=== PATIENT | female | born 1980 | race Hispanic/Latino ===

== ENCOUNTER 2018-05-18 20:27 | Emergency (ER) | payer MEDICAID ==
[2018-05-18] MEDS ORDERED: ONDANSETRON HCL 4 MG/2 ML VIAL ONE (21:58)
[2018-05-18] MEDS ORDERED: SODIUM CHLORIDE 0.9% 1000ML 1,000 ML IV ONE (21:58)
[2018-05-18 22:23] LABS: BASOPHILS % (AUTO) 0.3 % (0.0-5.0); MEAN CORPUSCULAR HEMOGLOBIN 31.6 pg (27.0-33.0); MEAN CORPUSCULAR HGB CONC 34.3 g/dL (32.0-36.0); MEAN CORPUSCULAR VOLUME 91.9 fL (79-99); MONOCYTES % (AUTO) 5.3 % (3.0-13.0); NEUTROPHILS % (AUTO) 80.4 % (40.0-77.0); PLATELET COUNT (AUTO) 238 K/uL (130-400); RED BLOOD CELL COUNT(AUTO) 4.03 MIL/uL (4.00-5.50); RED CELL DISTRIBUTION WIDTH 13.1 % (11.0-15.5); WHITE BLOOD COUNT (AUTO) 13.6 K/uL (4.8-10.8)
[2018-05-18 22:24] LABS: APPEARANCE,URINE Clear (CLEAR); BILIRUBIN,URINE Negative (NEGATIVE); COLOR,URINE Yellow (YELLOW); GLUCOSE, URINE (UA) Negative (NEGATIVE); KETONES,URINE Negative (NEGATIVE); LEUKOCYTE ESTERASE ,URINE Trace (NEGATIVE); NITRATE,URINE Negative (NEGATIVE); OCCULT BLOOD,URINE Negative (NEGATIVE); PH,URINE 6.5 (5.0-8.0); PROTEIN,URINE Negative (NEGATIVE)
[2018-05-18 22:41] LABS: CREATININE 0.6 mg/dL (0.5-1.5); POTASSIUM 3.8 mmol/L (3.5-5.1)
[2018-05-18 22:44] LABS: BACTERIA,URINE Rare /HPF (None Seen); MUCUS,URINE Moderate LPF (None Seen); RBC,URINE None Seen /HPF (0-1); SQUAMOUS EPITHELIAL CELL,UR Moderate /HPF (0-2); WBC,URINE None Seen /HPF (0-1)
[2018-05-18] MEDS ORDERED: MAG HYDROX/AL HYDROX/SIMETH ES 30 ML SUSP UDCUP ONE (22:47)
[2018-05-18 23:07] LABS: ALBUMIN 3.1 g/dL (3.5-5.0); BILIRUBIN,TOTAL 0.5 mg/dL (0.2-1.0); TOTAL PROTEIN, SERUM 6.5 g/dL (6.0-8.3)
== END 2018-05-19 00:35 | disposition home or self-care (01) ==
LOC: EDH 20:27
DX: O26.892 Other specified pregnancy related conditions, second trimester (principal); E86.0 Dehydration; O21.8 Other vomiting complicating pregnancy; Z88.8 Allergy status to other drugs, medicaments and biological substances; Z90.49 Acquired absence of other specified parts of digestive tract; Z79.899 Other long term (current) drug therapy; Z3A.15 15 weeks gestation of pregnancy
CPT/HCPCS: 36415; 76805; 80053; 81001; 84702; 85025; 96361; 96374; 99285; J2405; J7030

== ENCOUNTER 2018-07-04 15:06 | Emergency (ER) | payer MEDICAID ==
[2018-07-04] MEDS ORDERED: ACETAMINOPHEN 325 MG TAB ONE (15:35)
[2018-07-04 15:56] LABS: APPEARANCE,URINE Clear (CLEAR); BILIRUBIN,URINE Negative (NEGATIVE); COLOR,URINE Yellow (YELLOW); GLUCOSE, URINE (UA) Negative (NEGATIVE); KETONES,URINE Negative (NEGATIVE); LEUKOCYTE ESTERASE ,URINE Negative (NEGATIVE); NITRATE,URINE Negative (NEGATIVE); OCCULT BLOOD,URINE Negative (NEGATIVE); PROTEIN,URINE Negative (NEGATIVE); UROBILINOGEN,URINE 0.2 mg/dL (0.2-1.0)
[2018-07-04] MEDS ORDERED: ALBUTEROL SULFATE 0.083% 2.5 MG/3 ML INH IH ONE (16:04)
[2018-07-04 16:10] LABS: RAPID GROUP A STREP NEGATIVE (NEGATIVE)
== END 2018-07-04 17:12 | disposition home or self-care (01) ==
LOC: EDH 15:06
DX: O99.512 Diseases of the respiratory system complicating pregnancy, second trimester (principal); J11.1 Influenza due to unidentified influenza virus with other respiratory manifestations; J20.9 Acute bronchitis, unspecified; Z3A.21 21 weeks gestation of pregnancy; Z88.6 Allergy status to analgesic agent; Z90.49 Acquired absence of other specified parts of digestive tract; Z79.899 Other long term (current) drug therapy
CPT/HCPCS: 81003; 87804; 87880; 94640

== ENCOUNTER 2020-04-18 14:25 | Emergency (ER) | payer MEDICAID, OTHER ==
[2020-04-18] MEDS ORDERED: SODIUM CHLORIDE 0.9% 1000ML 1,000 ML IV ONE (14:26)
[2020-04-18 15:23] LABS: BASOPHILS % (AUTO) 0.3 % (0.0-5.0); EOSINOPHILS % (AUTO) 1.1 % (0.0-8.0); HEMATOCRIT 40.8 % (36-48); LYMPHOCYTES % (AUTO) 28.4 % (21.0-51.0); MEAN CORPUSCULAR HEMOGLOBIN 30.5 pg (27.0-33.0); MEAN CORPUSCULAR HGB CONC 34.1 g/dL (32.0-36.0); MEAN CORPUSCULAR VOLUME 89.5 fL (79-99); MONOCYTES % (AUTO) 6.5 % (3.0-13.0); NEUTROPHILS % (AUTO) 63.2 % (40.0-77.0); PLATELET COUNT (AUTO) 247 K/uL (130-400); RED BLOOD CELL COUNT(AUTO) 4.56 MIL/uL (4.00-5.50); RED CELL DISTRIBUTION WIDTH 13.1 % (11.0-15.5); WHITE BLOOD COUNT (AUTO) 11.6 K/uL (4.8-10.8)
[2020-04-18 15:38] LABS: APPEARANCE,URINE Clear (CLEAR); BILIRUBIN,URINE Negative (NEGATIVE); COLOR,URINE Yellow (YELLOW); GLUCOSE, URINE (UA) Negative (NEGATIVE); HCG,QUAL RESULT NEGATIVE (NEGATIVE); KETONES,URINE Negative (NEGATIVE); LEUKOCYTE ESTERASE ,URINE Negative (NEGATIVE); NITRATE,URINE Negative (NEGATIVE); OCCULT BLOOD,URINE Small (NEGATIVE); PH,URINE 7.5 (5.0-8.0); PROTEIN,URINE Negative (NEGATIVE); UROBILINOGEN,URINE 0.2 mg/dL (0.2-1.0)
[2020-04-18] MEDS ORDERED: KETOROLAC TROMETHAMINE 30MG/ML ONE (15:42)
[2020-04-18] MEDS ORDERED: ONDANSETRON HCL 4 MG/2 ML VIAL ONE (15:42)
[2020-04-18 15:48] LABS: CREATININE 0.7 mg/dL (0.5-1.5); POTASSIUM 3.7 mmol/L (3.5-5.1)
[2020-04-18 15:58] LABS: BILIRUBIN,TOTAL 0.3 mg/dL (0.2-1.0); TOTAL PROTEIN, SERUM 7.5 g/dL (6.0-8.3)
[2020-04-18 16:03] LABS: BACTERIA,URINE None Seen /HPF (None Seen); SQUAMOUS EPITHELIAL CELL,UR 0-2 /HPF (0-2); WBC,URINE None Seen /HPF (0-1)
== END 2020-04-18 17:03 | disposition home or self-care (01) ==
LOC: EDH 14:25
DX: R06.00 Dyspnea, unspecified (principal); R51 Headache; R05 Cough; Z20.828 Contact with and (suspected) exposure to other viral communicable diseases; F41.9 Anxiety disorder, unspecified; Z88.8 Allergy status to other drugs, medicaments and biological substances
CPT/HCPCS: 36415; 71045; 80053; 81001; 81025; 83690; 84484; 85025; 87426; 93005; 96361; 96374; 96375; 99285; J1885; J2405; J7030

== ENCOUNTER 2020-04-19 15:41 | Emergency (ER) | payer OTHER | END 2020-04-19 17:37 | disposition home or self-care (01) | LOC: EDH 15:41 | DX: U07.1 COVID-19 (principal); F43.0 Acute stress reaction; R06.00 Dyspnea, unspecified; Z87.891 Personal history of nicotine dependence; Z88.8 Allergy status to other drugs, medicaments and biological substances | CPT/HCPCS: 71045 ==

== ENCOUNTER 2020-05-02 14:45 | Emergency (ER) | payer OTHER ==
[2020-05-02] MEDS ORDERED: ASPIRIN 325 MG TABLET ONE (15:34)
[2020-05-02 16:03] LABS: BASOPHILS % (AUTO) 0.4 % (0.0-5.0); EOSINOPHILS % (AUTO) 0.8 % (0.0-8.0); LYMPHOCYTES % (AUTO) 25.8 % (21.0-51.0); MEAN CORPUSCULAR HEMOGLOBIN 30.1 pg (27.0-33.0); MEAN CORPUSCULAR HGB CONC 34.4 g/dL (32.0-36.0); MEAN CORPUSCULAR VOLUME 87.6 fL (79-99); MONOCYTES % (AUTO) 6.9 % (3.0-13.0); NEUTROPHILS % (AUTO) 65.2 % (40.0-77.0); PLATELET COUNT (AUTO) 360 K/uL (130-400); RED BLOOD CELL COUNT(AUTO) 4.68 MIL/uL (4.00-5.50); RED CELL DISTRIBUTION WIDTH 13.1 % (11.0-15.5); WHITE BLOOD COUNT (AUTO) 10.5 K/uL (4.8-10.8)
[2020-05-02] MEDS ORDERED: NITROGLYCERIN 1GM/1 INCH PACKET TD ONE (16:07)
[2020-05-02 16:18] LABS: CREATININE 0.8 mg/dL (0.5-1.5); POTASSIUM 3.7 mmol/L (3.5-5.1)
[2020-05-02 16:21] LABS: APPEARANCE,URINE Clear (CLEAR); BILIRUBIN,URINE Negative (NEGATIVE); COLOR,URINE Yellow (YELLOW); GLUCOSE, URINE (UA) Negative (NEGATIVE); KETONES,URINE Negative (NEGATIVE); LEUKOCYTE ESTERASE ,URINE Trace (NEGATIVE); NITRATE,URINE Negative (NEGATIVE); OCCULT BLOOD,URINE Negative (NEGATIVE); PH,URINE 8.5 (5.0-8.0); PROTEIN,URINE Negative (NEGATIVE); UROBILINOGEN,URINE 0.2 mg/dL (0.2-1.0)
[2020-05-02 16:23] LABS: BILIRUBIN,TOTAL 0.4 mg/dL (0.2-1.0); TOTAL PROTEIN, SERUM 7.6 g/dL (6.0-8.3)
[2020-05-02 16:24] LABS: HCG,QUAL RESULT NEGATIVE (NEGATIVE)
[2020-05-02 16:29] LABS: INR 0.92 (0.85-1.15); PARTIAL THROMBOPLASTIN TIME 25.4 SEC (26.3-35.5)
[2020-05-02 16:40] LABS: BACTERIA,URINE Rare /HPF (None Seen); RBC,URINE None Seen /HPF (0-1); SQUAMOUS EPITHELIAL CELL,UR 0-2 /HPF (0-2); WBC,URINE 0-1 /HPF (0-1)
[2020-05-02] MEDS ORDERED: ACETAMINOPHEN 325 MG TAB ONE (22:05)
== END 2020-05-02 22:53 | disposition home or self-care (01) ==
LOC: EDH 14:45
DX: R07.89 Other chest pain (principal); R00.2 Palpitations; R06.02 Shortness of breath
CPT/HCPCS: 36415; 71045; 80053; 81001; 81025; 82550; 84484; 85025; 85378; 85610; 85730; 93005

== ENCOUNTER 2020-07-28 20:16 | Emergency (ER) | payer OTHER ==
[2020-07-28 20:47] LABS: BASOPHILS % (AUTO) 0.4 % (0.0-5.0); EOSINOPHILS % (AUTO) 2.2 % (0.0-8.0); HEMATOCRIT 43.1 % (36-48); LYMPHOCYTES % (AUTO) 37.8 % (21.0-51.0); MEAN CORPUSCULAR HEMOGLOBIN 30.6 pg (27.0-33.0); MEAN CORPUSCULAR HGB CONC 34.6 g/dL (32.0-36.0); MEAN CORPUSCULAR VOLUME 88.5 fL (79-99); MONOCYTES % (AUTO) 7.8 % (3.0-13.0); NEUTROPHILS % (AUTO) 51.4 % (40.0-77.0); PLATELET COUNT (AUTO) 326 K/uL (130-400); RED BLOOD CELL COUNT(AUTO) 4.87 MIL/uL (4.00-5.50); RED CELL DISTRIBUTION WIDTH 11.8 % (11.0-15.5); WHITE BLOOD COUNT (AUTO) 11.2 K/uL (4.8-10.8)
[2020-07-28] MEDS ORDERED: ACETAMINOPHEN EXTRA STRENGTH 500 MG TABLET ONE (20:47)
[2020-07-28] MEDS ORDERED: AZITHROMYCIN 250 MG TABLET PO ONE (20:47)
[2020-07-28 20:59] LABS: CREATININE 0.8 mg/dL (0.5-1.5); POTASSIUM 3.5 mmol/L (3.5-5.1)
[2020-07-28 21:02] LABS: BILIRUBIN,TOTAL 0.3 mg/dL (0.2-1.0); TOTAL PROTEIN, SERUM 7.7 g/dL (6.0-8.3)
[2020-07-28 21:07] LABS: RAPID GROUP A STREP NEGATIVE (NEGATIVE)
== END 2020-07-28 21:33 | disposition home or self-care (01) ==
LOC: EDH 20:16
DX: B34.9 Viral infection, unspecified (principal); J02.9 Acute pharyngitis, unspecified; Z98.890 Other specified postprocedural states; Z88.6 Allergy status to analgesic agent
CPT/HCPCS: 36415; 71045; 80053; 85025; 87426; 87804 ×2; 87880; 99284; U0003

== ENCOUNTER 2021-01-08 19:43 | Emergency (ER) | payer OTHER ==
[2021-01-08] MEDS ORDERED: ASPIRIN 325 MG TABLET ONE (20:09)
[2021-01-08 20:12] LABS: BASOPHILS % (AUTO) 0.4 % (0.0-5.0); EOSINOPHILS % (AUTO) 2.2 % (0.0-8.0); HEMATOCRIT 39.5 % (36-48); LYMPHOCYTES % (AUTO) 33.6 % (21.0-51.0); MEAN CORPUSCULAR HEMOGLOBIN 30.6 pg (27.0-33.0); MEAN CORPUSCULAR HGB CONC 33.9 g/dL (32.0-36.0); MEAN CORPUSCULAR VOLUME 90.2 fL (79-99); NEUTROPHILS % (AUTO) 55.3 % (40.0-77.0); PLATELET COUNT (AUTO) 285 K/uL (130-400); RED BLOOD CELL COUNT(AUTO) 4.38 MIL/uL (4.00-5.50); RED CELL DISTRIBUTION WIDTH 12.3 % (11.0-15.5); WHITE BLOOD COUNT (AUTO) 10.6 K/uL (4.8-10.8)
[2021-01-08 20:27] LABS: PROTHROMBIN TIME 10.9 SEC (9.6-11.6)
[2021-01-08 20:29] LABS: PARTIAL THROMBOPLASTIN TIME 24.7 SEC (26.3-35.5)
[2021-01-08 20:29] LABS: APPEARANCE,URINE Clear (CLEAR); BILIRUBIN,URINE Negative (NEGATIVE); COLOR,URINE Yellow (YELLOW); GLUCOSE, URINE (UA) Negative (NEGATIVE); KETONES,URINE Negative (NEGATIVE); LEUKOCYTE ESTERASE ,URINE Negative (NEGATIVE); NITRATE,URINE Negative (NEGATIVE); OCCULT BLOOD,URINE Negative (NEGATIVE); PH,URINE 6.5 (5.0-8.0); PROTEIN,URINE Negative (NEGATIVE); UROBILINOGEN,URINE 0.2 mg/dL (0.2-1.0)
[2021-01-08 20:31] LABS: CREATININE 0.9 mg/dL (0.5-1.5); POTASSIUM 3.2 mmol/L (3.5-5.1)
[2021-01-08 20:31] LABS: HCG,QUAL RESULT NEGATIVE (NEGATIVE)
[2021-01-08] MEDS ORDERED: ONDANSETRON HCL 4 MG/2 ML VIAL ONE ×2 (20:35→20:51)
[2021-01-08] MEDS ORDERED: KETOROLAC TROMETHAMINE 60 MG/2 ML VIAL ONE (20:35)
[2021-01-08] MEDS ORDERED: KETOROLAC TROMETHAMINE 30MG/ML ONE ×2 (20:36→20:52)
[2021-01-08] MEDS ORDERED: ORPHENADRINE CITRATE 30 MG/ML ML ONE (20:37)
[2021-01-08] MEDS ORDERED: SODIUM CHLORIDE 0.9% 1000ML 1,000 ML IV ONE ×2 (20:38→20:50)
[2021-01-08 20:40] LABS: B-TYPE NATRIURETIC PEPTIDE 18 pg/mL (0-100)
[2021-01-08 20:41] LABS: ALBUMIN 3.7 g/dL (3.5-5.0); BILIRUBIN,TOTAL 0.3 mg/dL (0.2-1.0); TOTAL PROTEIN, SERUM 7.2 g/dL (6.0-8.3)
[2021-01-08] MEDS ORDERED: PANTOPRAZOLE SODIUM 40 MG TABLET.DR ONE (21:58)
== END 2021-01-08 22:02 | disposition home or self-care (01) ==
LOC: EDH 19:43
DX: G44.209 Tension-type headache, unspecified, not intractable (principal); E86.0 Dehydration; Z20.822 Contact with and (suspected) exposure to COVID-19; Z88.1 Allergy status to other antibiotic agents
CPT/HCPCS: 36415; 70450; 71045; 80053; 81003; 81025; 83690; 83880; 84443; 84484; 85025; 85610; 85730; 87426; 93005; 96361; 96374; 96375; 99285; J1885 ×2; J2360; J2405 ×2; J7030 ×2; U0003

== ENCOUNTER 2023-12-04 13:46 | Emergency (ER) | payer BC ==
[~2023-12-04] VITALS: Ht 154.9 cm; Wt 73.9 kg
[~2023-12-04 13:46] MED LIST: ASCO500C18 PO; ATOR20TA65 PO; LOSA25TA41 PO; PREN-196 PO; ZINC220T4 PO
[2023-12-04 13:50] VITALS: BP 136/78; PULSE 88; RESP 18
[2023-12-04 13:58] VITALS: TEMP 100.3
[2023-12-04] MEDS: ACETAMINOPHEN 325 MG TAB PO ONE (13:58)
[2023-12-04 14:34] LABS: SARS-CoV-2, RNA, NAAT NEGATIVE SARS CoV-2 (NEGATIVE)
[2023-12-04 14:37] LABS: APPEARANCE,URINE CLEAR (CLEAR); BILIRUBIN,URINE NEGATIVE (NEGATIVE); COLOR,URINE LIGHT-YELLOW (YELLOW); GLUCOSE, URINE (UA) NEGATIVE (NEGATIVE); KETONES,URINE NEGATIVE (NEGATIVE); LEUKOCYTE ESTERASE ,URINE NEGATIVE Leu/uL (NEGATIVE); NITRATE,URINE NEGATIVE (NEGATIVE); OCCULT BLOOD,URINE SMALL (NEGATIVE); PH,URINE 5.5 (5.0-8.0); PROTEIN,URINE NEGATIVE (NEGATIVE); UROBILINOGEN,URINE 0.2 mg/dL (0.2-1.0)
[2023-12-04 14:39] LABS: ADD UA MICROSCOPIC YES
[2023-12-04 14:39] LABS: RAPID GROUP A STREP positive (NEGATIVE)
[2023-12-04 14:41] LABS: HCG,QUALITATIVE URINE NEGATIVE (NEGATIVE)
[2023-12-04 14:42] LABS: INFLUENZA TYPE A Negative For Type A (NEGATIVE); INFLUENZA TYPE B Negative For Type B (NEGATIVE)
[2023-12-04 14:42] LABS: MUCUS,URINE RARE LPF (None Seen); SQUAMOUS EPITHELIAL CELL,UR RARE /HPF (0-2); WBC,URINE 0-1 /HPF (0-1)
[2023-12-04] MEDS: PREDNISONE 20 MG TABLET PO ONE (15:42)
[2023-12-04] MEDS: CEFTRIAXONE 1G VIAL IM ONE (15:42)
[2023-12-04] MEDS ORDERED: PRED20TA3 PO (15:50)
[2023-12-04] MEDS ORDERED: AMOX1TAB16 PO (15:50)
[2023-12-04] MEDS ORDERED: IBUP-2070 PO (15:50)
== END 2023-12-04 16:00 | disposition home or self-care (01) ==
LOC: EDH 13:46
DX: J02.0 Streptococcal pharyngitis (principal); R19.7 Diarrhea, unspecified; M79.10 Myalgia, unspecified site; Z20.822 Contact with and (suspected) exposure to COVID-19; Z90.49 Acquired absence of other specified parts of digestive tract; Z79.899 Other long term (current) drug therapy
CPT/HCPCS: 99284; 87635; 87880; 87804 ×2; 81001; 81025; 96372; J0696

== ENCOUNTER 2024-02-10 01:33 | Emergency (ER) | payer BC ==
[~2024-02-10] VITALS: Ht 154.9 cm; Wt 73.0 kg
[~2024-02-10 01:33] MED LIST changes: +AMOX1TAB16 PO; +IBUP-2070 PO; +PRED20TA3 PO
[2024-02-10 02:12] LABS: BASOPHILS # (AUTO) 0.03 K/uL (0.00-0.20); BASOPHILS % (AUTO) 0.3 % (0.0-5.0); EOSINOPHILS # (AUTO) 0.27 K/uL (0.00-0.70); EOSINOPHILS % (AUTO) 2.6 % (0.0-8.0); HEMATOCRIT 43.2 % (36-48); IMMATURE GRANULOCYTE ABSOLUTE 0.04 K/uL (0-1); LYMPHOCYTES # (AUTO) 3.9 K/uL (1.0-4.8); LYMPHOCYTES % (AUTO) 37.8 % (21.0-51.0); MEAN CORPUSCULAR HEMOGLOBIN 30.7 pg (27.0-33.0); MEAN CORPUSCULAR VOLUME 90.2 fL (79-99); MONOCYTES # (AUTO) 0.8 K/uL (0.1-1.0); MONOCYTES % (AUTO) 7.9 % (3.0-13.0); NEUTROPHILS # (AUTO) 5.2 K/uL (1.8-7.7); PLATELET COUNT (AUTO) 271 K/uL (130-400); RED BLOOD CELL COUNT(AUTO) 4.79 MIL/uL (4.00-5.50); RED CELL DISTRIBUTION WIDTH 12.1 % (11.0-15.5); WHITE BLOOD COUNT (AUTO) 10.3 K/uL (4.8-10.8)
[2024-02-10 02:27] LABS: CREATININE 0.8 mg/dL (0.5-1.0); POTASSIUM 3.6 mmol/L (3.5-5.1)
[2024-02-10 02:28] LABS: ALBUMIN 3.9 g/dL (3.5-5.0); BILIRUBIN,TOTAL 0.3 mg/dL (0.2-1.0); TOTAL PROTEIN, SERUM 7.4 g/dL (6.0-8.3)
[2024-02-10] MEDS: ONDANSETRON 4MG INJ IVP ONE (02:59)
[2024-02-10 03:14] LABS: APPEARANCE,URINE CLEAR (CLEAR); BILIRUBIN,URINE NEGATIVE (NEGATIVE); COLOR,URINE COLORLESS (YELLOW); GLUCOSE, URINE (UA) NEGATIVE (NEGATIVE); KETONES,URINE NEGATIVE (NEGATIVE); LEUKOCYTE ESTERASE ,URINE NEGATIVE Leu/uL (NEGATIVE); NITRATE,URINE NEGATIVE (NEGATIVE); OCCULT BLOOD,URINE NEGATIVE (NEGATIVE); PH,URINE 6.5 (5.0-8.0); PROTEIN,URINE NEGATIVE (NEGATIVE); UROBILINOGEN,URINE 0.2 mg/dL (0.2-1.0)
[2024-02-10 03:25] LABS: ADD UA MICROSCOPIC NO
[2024-02-10] MEDS: IPRATROPIUM/ALBUTEROL SULFATE 3 ML SOLUTION IH ONE (03:28)
[2024-02-10 03:29] VITALS: PULSE 65; RESP 18
[2024-02-10] MEDS ORDERED: IOHEXOL-350 75 ML VIAL IV ONE (04:22)
[2024-02-10 07:10] VITALS: BP 135/63; PULSE 65; RESP 20; O2SAT 99
[2024-02-10] MEDS ORDERED: ALBUHFA IH (09:40)
[2024-02-10] MEDS ORDERED: PRED50TA2 PO (09:40)
== END 2024-02-10 09:57 | disposition home or self-care (01) ==
LOC: EDH 01:33
DX: R07.89 Other chest pain (principal); R53.1 Weakness; R42 Dizziness and giddiness; R06.00 Dyspnea, unspecified; M79.602 Pain in left arm; E78.00 Pure hypercholesterolemia, unspecified; I10 Essential (primary) hypertension; Z90.49 Acquired absence of other specified parts of digestive tract
CPT/HCPCS: 99284; 96374; 71270; 71045; 84484; 80053; 84703; 85025; 85378; 81003; 36415; 93005; 94640; J2405; Q9967

== ENCOUNTER 2024-05-08 10:01 | Emergency (ER) | payer BC ==
[~2024-05-08] VITALS: Ht 154.9 cm; Wt 76.2 kg
[~2024-05-08 10:01] MED LIST changes: +ALBUHFA IH; +PRED50TA2 PO
[2024-05-08 10:49] LABS: BASOPHILS # (AUTO) 0.02 K/uL (0.00-0.20); BASOPHILS % (AUTO) 0.3 % (0.0-5.0); EOSINOPHILS # (AUTO) 0.09 K/uL (0.00-0.70); EOSINOPHILS % (AUTO) 1.2 % (0.0-8.0); HEMATOCRIT 44.4 % (36-48); IMMATURE GRANULOCYTE ABSOLUTE 0.04 K/uL (0-1); LYMPHOCYTES # (AUTO) 2.3 K/uL (1.0-4.8); LYMPHOCYTES % (AUTO) 30.2 % (21.0-51.0); MEAN CORPUSCULAR HEMOGLOBIN 30.8 pg (27.0-33.0); MEAN CORPUSCULAR HGB CONC 33.3 g/dL (32.0-36.0); MEAN CORPUSCULAR VOLUME 92.3 fL (79-99); MONOCYTES # (AUTO) 0.7 K/uL (0.1-1.0); MONOCYTES % (AUTO) 8.9 % (3.0-13.0); NEUTROPHILS # (AUTO) 4.6 K/uL (1.8-7.7); NEUTROPHILS % (AUTO) 58.9 % (40.0-77.0); PLATELET COUNT (AUTO) 250 K/uL (130-400); RED BLOOD CELL COUNT(AUTO) 4.81 MIL/uL (4.00-5.50); RED CELL DISTRIBUTION WIDTH 12.4 % (11.0-15.5); WHITE BLOOD COUNT (AUTO) 7.7 K/uL (4.8-10.8)
[2024-05-08 11:01] LABS: APPEARANCE,URINE CLEAR (CLEAR); BILIRUBIN,URINE NEGATIVE (NEGATIVE); COLOR,URINE LIGHT-YELLOW (YELLOW); GLUCOSE, URINE (UA) NEGATIVE (NEGATIVE); KETONES,URINE NEGATIVE (NEGATIVE); LEUKOCYTE ESTERASE ,URINE NEGATIVE Leu/uL (NEGATIVE); NITRATE,URINE NEGATIVE (NEGATIVE); OCCULT BLOOD,URINE NEGATIVE (NEGATIVE); PROTEIN,URINE NEGATIVE (NEGATIVE); UROBILINOGEN,URINE 0.2 mg/dL (0.2-1.0)
[2024-05-08 11:03] LABS: ADD UA MICROSCOPIC NO
[2024-05-08 11:06] LABS: CREATININE 0.8 mg/dL (0.5-1.0); POTASSIUM 4.4 mmol/L (3.5-5.1)
[2024-05-08 11:21] LABS: B-TYPE NATRIURETIC PEPTIDE 45 pg/mL (0-100)
[2024-05-08] MEDS: IBUPROFEN 800 MG TAB PO ONE (12:22)
[2024-05-08] MEDS ORDERED: ALBUHFA IH (13:27)
[2024-05-08 13:32] VITALS: BP 136/48; PULSE 58; RESP 16; TEMP 96.8; O2SAT 99
[2024-05-13] MEDS ORDERED: CHOL-4 PO (02:58)
[2024-05-13] MEDS ORDERED: VITA800012 PO (02:59)
[2024-05-13] MEDS ORDERED: MULT-1290 PO (03:00)
[2024-05-14] MEDS ORDERED: HYDR-3421 PO (14:21)
== END 2024-05-08 13:40 | disposition home or self-care (01) ==
LOC: EDH 10:01
DX: R06.00 Dyspnea, unspecified (principal); R06.02 Shortness of breath; F41.9 Anxiety disorder, unspecified; Z79.52 Long term (current) use of systemic steroids; Z79.899 Other long term (current) drug therapy; Z88.5 Allergy status to narcotic agent; Z90.49 Acquired absence of other specified parts of digestive tract
CPT/HCPCS: 36415; 71045; 80048; 81003; 82550; 83880; 84484; 85025; 93005

== ENCOUNTER 2024-05-27 13:21 | Emergency (ER) | payer BC ==
[~2024-05-27] VITALS: Ht 154.9 cm; Wt 73.9 kg
[~2024-05-27 13:21] MED LIST changes: -AMOX1TAB16 PO; +CHOL-4 PO; +HYDR-3421 PO; -IBUP-2070 PO; -LOSA25TA41 PO; +MULT-1290 PO; -PRED20TA3 PO; -PRED50TA2 PO; -PREN-196 PO; +VITA800012 PO
[2024-05-27 13:36] VITALS: BP 116/59; PULSE 64; RESP 20
[2024-05-27 13:54] LABS: BASOPHILS # (AUTO) 0.02 K/uL (0.00-0.20); BASOPHILS % (AUTO) 0.2 % (0.0-5.0); EOSINOPHILS # (AUTO) 0.17 K/uL (0.00-0.70); EOSINOPHILS % (AUTO) 1.8 % (0.0-8.0); HEMATOCRIT 40.8 % (36-48); IMMATURE GRANULOCYTE ABSOLUTE 0.04 K/uL (0-1); LYMPHOCYTES # (AUTO) 2.9 K/uL (1.0-4.8); LYMPHOCYTES % (AUTO) 31.3 % (21.0-51.0); MEAN CORPUSCULAR HEMOGLOBIN 30.5 pg (27.0-33.0); MEAN CORPUSCULAR HGB CONC 33.8 g/dL (32.0-36.0); MEAN CORPUSCULAR VOLUME 90.3 fL (79-99); MONOCYTES # (AUTO) 0.9 K/uL (0.1-1.0); MONOCYTES % (AUTO) 9.2 % (3.0-13.0); NEUTROPHILS # (AUTO) 5.3 K/uL (1.8-7.7); NEUTROPHILS % (AUTO) 57.1 % (40.0-77.0); PLATELET COUNT (AUTO) 254 K/uL (130-400); RED BLOOD CELL COUNT(AUTO) 4.52 MIL/uL (4.00-5.50); RED CELL DISTRIBUTION WIDTH 12.3 % (11.0-15.5); WHITE BLOOD COUNT (AUTO) 9.2 K/uL (4.8-10.8)
[2024-05-27 13:59] LABS: CREATININE 0.8 mg/dL (0.5-1.0); POTASSIUM 3.7 mmol/L (3.5-5.1)
[2024-05-27] MEDS ORDERED: IOHEXOL-350 75 ML VIAL IV ONE (14:31)
== END 2024-05-27 15:31 | disposition home or self-care (01) ==
LOC: EDH 13:21
DX: R06.02 Shortness of breath (principal); E78.00 Pure hypercholesterolemia, unspecified; Z88.8 Allergy status to other drugs, medicaments and biological substances; Z79.899 Other long term (current) drug therapy; Z90.49 Acquired absence of other specified parts of digestive tract
CPT/HCPCS: 99284; 71270; 80048; 84703; 85025; 36415; Q9967

== ENCOUNTER 2024-07-29 11:33 | Emergency (ER) | payer BC ==
[~2024-07-29] VITALS: Ht 157.5 cm; Wt 70.3 kg
--- NOTE | 2024-07-29 11:40 | ERN ---
ED Note History of Present Illness Stated Complaint: SOB Chief Complaint: Shortness of Breath Time Seen by MD: 11:35 Dictation: PATIENT IS A 43-YEAR-OLD FEMALE COMING IN TODAY WITH COMPLAINTS OF FLU-LIKE SYMPTOMS TO INCLUDE FEVER CHILLS CLEAR RHINITIS WITH SORE THROAT, PAINFUL SWALLOWING COUGH WITH THE OCCASIONAL PRODUCTION OF YELLOW-GREEN PHLEGM. SHE STATES SHE HAS HAD SOME ABDOMINAL CRAMPING WITH DIARRHEA NAUSEA VOMITING ONSET WAS LAST FRIDAY. NO LOSS OF TASTE OR SMELL, STATES SHE WENT TO HER DOCTOR ON FRIDAY, WAS TOLD AFTER FLU STREP AND COVID THAT EVERYTHING WAS NEGATIVE. SHE NEVER DID GET BETTER AND CAME IN TODAY FOR FURTHER EVALUATION AND TREATMENT. PATIENT NOTED TO HAVE DRY PERSISTENT COUGH WHILE EXAMINED. Allergies: Coded Allergies: meperidine (Verified Allergy, Unknown, 04/19/20) Home Meds Active Scripts Hydroxyzine HCl (Hydroxyzine HCl) 25 Mg Tablet, 25 MG PO Q12H PRN for anxiety for 15 Days, #30 TAB Prov:JENNY PARRA SUPERINTENDENT CONTAINER TERMINAL 05/14/24 Albuterol Sulfate (Ventolin Hfa/Proventil Hfa/Proair Hfa) 90 Mcg Puff, 2 PUFF IH Q4H PRN for SHORTNESS OF BREATH/WHEEZING for 30 Days, #1 INH 0 Refills Prov:KEL SAUCEDO NP 05/08/24 Albuterol Sulfate (Ventolin Hfa/Proventil Hfa/Proair Hfa) 90 Mcg Puff, 2 PUFF IH Q4H for WHEEZING, #1 INHALER 0 Refills Prov:KYAW DALY MD 02/10/24 Reported Medications Multivitamin/Iron/Folic Acid (Centrum Women Tablet) 18 Mg Iron-400 Mcg Tablet, 1 EACH PO DAILY, TAB 05/13/24 Vitamin A (Vitamin A) 2,400 Mcg Capsule, 2400 MCG PO DAILY, CAP 05/13/24 Cholecalciferol (Vitamin D3) (Vitamin D3) 250 Mcg (92182 Unit) Capsule, 250 MCG PO DAILY, CAP 05/13/24 Atorvastatin Calcium (Atorvastatin Calcium) 20 Mg Tablet, 1 TAB PO HS 07/24/23 Zinc Sulfate (Zinc) 50 Mg Tablet, 50 MG PO DAILY, TAB 10/07/21 Ascorbic Acid (Vitamin C) 500 Mg Capsule, 500 MG PO DAILY, CAP 10/07/21 Past Medical History Past Medical History: High Cholesterol Surgical History: Cholecystectomy PSYCH History: no pertinent psych hx Family History: Negative Social History: Negative, Lives with family History: Not Applicable : 7 Para: 7 Aborts: 0 RN Note Reviewed/Agreed w/PFSH: Yes Review of System Dictation CONSTITUTIONAL: NEGATIVE EXCEPT FOR HPI FEVER CHILLS HEAD/FACE: NEGATIVE EXCEPT FOR HPI EENT: NEGATIVE EXCEPT FOR HPI CLEAR RHINITIS WITH SORE THROAT PAINFUL SWALLOWING RESPIRATORY: NEGATIVE EXCEPT FOR HPI PERSISTENT COUGH WITH GREEN-YELLOW PHLEGM GASTROINTESTINAL/ABDOMINAL: NEGATIVE EXCEPT FOR HPI NAUSEA VOMITING WITH DIARRHEA CRAMPING GENITOURINARY: NEGATIVE EXCEPT FOR HPI MUSCULOSKELETAL: NEGATIVE EXCEPT FOR HPI INTEGUMENTARY: NEGATIVE EXCEPT FOR HPI NEUROLOGICAL/PSYCH: NEGATIVE EXCEPT FOR HPI HEMATOLOGIC/LYMPHATIC: NEGATIVE EXCEPT FOR HPI ALL SYSTEMS NEGATIVE, EXCEPT NOTED ABOVE. 13 POINT REVIEW OF SYSTEMS ASSESSED AND ALL NEGATIVE EXCEPT FOR ABOVE. Initial Vital Sign VS Vital Signs Date Time Temp Pulse Resp B/P (MAP) Pulse Ox O2 Delivery O2 Flow Rate FiO2 07/29/24 11:34 98.8 76 20 132/77 98 07/29/24 11:56 Room Air* 0 21 Physical Exam Dictation VITAL SIGNS REVIEWED GENERAL APPEARANCE: ALERT, ORIENTED X 3, N MODERATE ACUTE DISTRESS, WELL DEVELOPED, NOURISHED. HEAD AND FACE: NON-TRAUMATIC. EYES: PERRL, PINK CONJUNCTIVAS, EYELID NO TRAUMA, ANTERIOR CHAMBER WITH ARCUS SENILIS. EARS: PINNAS INTACT AND NO SIGNS OF TRAUMA OR ERYTHEMA EAR CANALS CLEAR AND NO DISCHARGE TM NO ERYTHEMA NOSE: N CLEAR ISCHARGE, NO BLEEDING. OROPHARYNX: MOUTH NORMAL, TONGUE PINK, PHARYNX CLEAR,N MODERATE PHARYNGEAL RYTHEMA, TONSILS NO EXUDATES, NO ABSCESSES NOTED, MUCOUS MEMBRANE MOIST UVULA MIDLINE, VOICE IS CLEAR POSITIVE SOME TONSILLAR LYMPHADENOPATHY NECK: SUPPLE, NON-TENDER, NO THYROMEGALY, NO MASSES, NO JVD, NO BRUITS BREAST:DEFERRED CHEST:NO TENDERNESS, NO CREPITUS, NO PARADOXICAL MOVEMENT, NO RETRACTIONS LUNGS:CLEAR, WELL-VENTILATED, SYMMETRIC, NO RALES, NO WHEEZING, NO RHONCHI, NO S TRIDOR, GOOD BREATH SOUNDS BILATERALLY PERSISTENT COUGH NOTED HEART: REGULAR RATE, REGULAR RHYTHM, NO MURMUR, NO GALLOPS VASCULAR: NO PERIPHERAL EDEMA, ABDOMEN: SOFT, POSITIVE BOWEL SOUNDS, NONDISTENDED, NO GUARDING, NONTENDER, NO REBOUND, NO MASSES NO HEPATOMEGALY, NO SPLENOMEGALY, NO MATAMOROS'S SIGN, NO HERNIAS. NO FOCAL TENDERNESS RECTAL: DEFERRED GENITAL: DEFERRED NEUROLOGICAL: NORMAL SPEECH, MOTOR FUNCTION INTACT, SENSORY FUNCTION INTACT MUSCULOSKELETAL: NECK NONTENDER, FULL RANGE OF MOTION, BACK NONTENDER, FULL RANGE OF MOTION, EXTREMITIES: NONTENDER, FULL RANGE OF MOTION SKIN: COLOR PINK, DRY, NO TURGOR, NO RASH, NO LACERATIONS, NO ABRASIONS, NO CONTUSIONS. LYMPHATIC: DEFERRED Results (Laboratory/Radiology) Laboratory/Radiology Laboratory Tests Test 07/29/24 11:46 07/29/24 11:48 07/29/24 12:08 White Blood Count 7.1 K/uL (4.8-10.8) Red Blood Count 4.88 MIL/uL (4.00-5.50) Hemoglobin 14.8 g/dL (12.0-16.0) Hematocrit 42.9 % (36-48) Mean Corpuscular Volume 87.9 fL (79-99) Mean Corpuscular Hemoglobin 30.3 pg (27.0-33.0) Mean Corpuscular Hemoglobin Concent 34.5 g/dL (32.0-36.0) Red Cell Distribution Width 12.0 % (11.0-15.5) Platelet Count 271 K/uL (130-400) Mean Platelet Volume 9.5 fL (7.5-10.5) Immature Granulocyte % (Auto) 0.6 % (0-1) Neutrophils (%) (Auto) 46.4 % (40.0-77.0) Lymphocytes (%) (Auto) 40.0 % (21.0-51.0) Monocytes (%) (Auto) 11.2 % (3.0-13.0) Eosinophils (%) (Auto) 1.4 % (0.0-8.0) Basophils (%) (Auto) 0.4 % (0.0-5.0) Neutrophils # (Auto) 3.3 K/uL (1.8-7.7) Lymphocytes # (Auto) 2.8 K/uL (1.0-4.8) Monocytes # (Auto) 0.8 K/uL (0.1-1.0) Eosinophils # (Auto) 0.10 K/uL (0.00-0.70) Basophils # (Auto) 0.03 K/uL (0.00-0.20) Absolute Immature Granulocyte (auto 0.04 K/uL (0-1) Nucleated Red Blood Cells 0.0 % (0.0-0.19) Sodium Level 137 mmol/L (136-145) Potassium Level 3.8 mmol/L (3.5-5.1) Chloride Level 100 mmol/L (101-111) L Carbon Dioxide Level 26 mmol/L (21-32) Blood Urea Nitrogen 13 mg/dL (7-18) Creatinine 0.9 mg/dL (0.5-1.0) Glomerular Filtration Rate Calc 80 mL/min (>90) Random Glucose 94 mg/dL (70-105) Total Calcium 9.1 mg/dL (8.5-10.1) Influenza Type A Antigen Positive For Type A Influenza Type B Antigen Negative For Type B SARS-CoV-2 Antigen (Rapid) PRESUMPTIVE NEGATIVE Group A Streptococcus Rapid negative (NEGATIVE) Urine Color COLORLESS (YELLOW) Urine Appearance CLEAR (CLEAR) Urine pH 7.5 (5.0-8.0) Urine Specific [place] 1.004 (1.001-1.031) Urine Protein NEGATIVE mg/dL (NEGATIVE) Urine Glucose (UA) NEGATIVE mg/dL (NEGATIVE) Urine Ketones NEGATIVE mg/dL (NEGATIVE) Urine Occult Blood NEGATIVE (NEGATIVE) Urine Nitrate NEGATIVE (NEGATIVE) Urine Bilirubin NEGATIVE mg/dL (NEGATIVE) Urine Urobilinogen 0.2 mg/dL (0.2-1.0) Urine Leukocyte Esterase NEGATIVE Gianna/uL Labs Reviewed?: Yes ED Course ED Course Orders Procedure Category Date Status Time Covid19 (Sars Antigen LAB 07/29/24 Complete Rapid) 11:35 Influenza Type A & B, LAB 07/29/24 Complete Rapid 11:35 Rapid (Group A Strep) LAB 07/29/24 Complete 11:35 Chest 1vw RAD 07/29/24 Resulted 11:35 Dexamethasone 4mg/Ml PHA 07/29/24 Complete 1ml Vial (Dexametha 12:00 Cbc With Differential LAB 07/29/24 Complete 11:35 Urinalysis Profile LAB 07/29/24 Complete 11:35 0.9%Nacl 1000ml (Ns PHA 07/29/24 Complete 1000ml) 12:00 Ketorolac PHA 07/29/24 Complete Tromethamine 30mg/Ml 12:00 Basic Metabolic Panel LAB 07/29/24 Complete 11:35 Current Medications Medications (Trade) Dose Ordered Sig/Isatu Route PRN Reason Start Time Stop Time Status Last Admin Dose Admin Dexamethasone Sodium Phosphate (dexaMETHasone 4MG/ML 1ML VIAL) 8 mg ONCE ONCE IVP 07/29/24 12:00 07/29/24 12:01 DC 07/29/24 11:52 Ketorolac Tromethamine (toRADol) 30 mg ONCE ONCE IVP 07/29/24 12:00 07/29/24 12:01 DC 07/29/24 11:51 Sodium Chloride 1,000 ml @ 0 mls/hr ONCE ONCE IV 07/29/24 12:00 07/29/24 12:01 DC 07/29/24 11:51 Vital Signs Date Time Temp Pulse Resp B/P (MAP) Pulse Ox O2 Delivery O2 Flow Rate FiO2 07/29/24 11:56 98.8 73 16 146/62 98 Room Air* 0 21 07/29/24 11:34 98.8 76 20 132/77 98 1158, CHEST X-RAY NEGATIVE 1325, PATIENT POSITIVE FOR INFLUENZA A ONLY, CHEST X-RAY URINE AND REMAINDER OF LABS NEGATIVE WE WILL START TAMIFLU AND HAVE PATIENT GO HOME TO FOLLOW UP WITH HER DOCTOR IN 2-3 DAYS Medical Decision Making MDM MDM: DIFFERENTIAL DIAGNOSIS: PNEUMONIA/BRONCHITIS/COVID-19/FL U/STREP/INFLUENZA/COUGH/FEVER RATIONALE: TESTS CONSIDERED AND ORDERED SECONDARY TO SHARED DECISION MAKING INCLUDE: SWABS/RADIOLOGY/UA PREVIOUS OUTSIDE RECORDS REVIEWED: OLD ER VISITS. REVIEWED RISK OF COMPLICATION AND/OR MORBIDITY OR MORTALITY OF PATIENT MANAGEMENT: NONE MEDICATIONS-PER MEDICATION RECONCILIATION SEE NURSE'S NOTES NEED FOR HOSPITALIZATION: PATIENT DOES NOT MEET CRITERIA FOR HOSPITALIZATION. NEED FOR EMERGENCY MAJOR/MINOR SURGERY: NO THERE ARE NO SOCIAL CONCERNS WITH THIS PATIENT. PRESCRIPTION DRUG MANAGEMENT TAMIFLU/TESSALON/MEDROL DOSEPAK PRESCRIPTIONS WILL INCLUDE SYMPTOMATIC CARE PATIENT'S PRIOR EXTERNAL MEDICAL RECORDS FROM OTHER ER VISITS WERE REVIEWED BY ME INDICATED. PRIOR TESTING AND RESULTS FROM PREVIOUS VISITS WERE REVIEWED. PRIOR TESTS WERE TAKEN INTO ACCOUNT WITH MEDICAL DECISION MAKING AND RESOURCE UTILIZATION, INDEPENDENT HISTORIAN/HISTORIANS WERE USED TO OBTAIN COMPLETE MEDICAL HISTORY. I INDEPENDENTLY INTERPRETED THE TEST THAT WERE PERFORMED, RESULTS WERE REVIEWED BY ME AND CONSIDERED FINDINGS ON RADIOLOGY IF ORDERED. MEDICAL MANAGEMENT AND EXAMINATION INTERPRETATION DISCUSSIONS WERE HAD BY ME WITH OTHER QUALIFIED HEALTHCARE PROFESSIONALS INDICATED FOR THE PATIENT'S CARE. DX & DISP Disposition: Discharge Departure Impression: Primary Impression: Influenza A Additional Impressions: Cough, Fever Condition: Stable Scripts Methylprednisolone (Medrol) 4 Mg Tab.ds.pk 1 TAB PO AD for 6 Days, #21 TAB 0 Refills 6 on day 1 then reduce by one tablet daily until gone Prov: KEL SAUCEDO NP 07/29/24 Benzonatate (Tessalon Perles) 100 Mg Cap 100 MG PO TID for cough, #30 CAP 0 Refills Prov: KEL SAUCEDO NP 07/29/24 Oseltamivir Phosphate (Tamiflu) 75 Mg Cap 1 CAP PO BID for 5 Days, #10 CAP 0 Refills Prov: KEL SAUCEDO NP 07/29/24 Additional Instructions: FOLLOW-UP WITH PRIMARY CARE PROVIDER IN 1 TO 2 DAYS. TAKE MEDICATIONS DIRECTED HERE IN THE EMERGENCY ROOM. OKAY TO CONTINUE HOME MEDICATIONS UNLESS OTHERWISE DISCUSSED DURING YOUR VISIT IN THE EMERGENCY ROOM TODAY. RETURN TO YOUR NEAREST EMERGENCY ROOM IF SYMPTOMS WORSEN OR IF THERE IS NO IMPROVEMENT. CALL 911 IF YOU NEED IMMEDIATE ASSISTANCE. TAKE TYLENOL OR MOTRIN [id number] NEEDED AND IF NO CONTRAINDICATIONS ARE PRESENT. INCREASE ORAL HYDRATION. A WOUND CULTURE OR URINE CULTURE WAS ORDERED HERE IN THE EMERGENCY ROOM DEPARTMENT PLEASE FOLLOW-UP WITH PRIMARY CARE PROVIDER AND ADVISE THEM TO GET REPEAT PORTS FROM OUR FACILITY. IF YOU HAD ANY DAKSHA WRAP/SPLINTS THAT WERE APPLIED HERE, PLEASE DO NOT REMOVE THEM UNTIL YOU SEE YOUR PRIMARY CARE OR SPECIALTY. TAKE TAMIFLU DIRECTED UNTIL GONE. , INCREASE YOUR WATER INTAKE. SEE YOUR PRIMARY CARE DOCTOR FOR FOLLOW UP IN 1-2 DAYS. ANY FAMILY MEMBERS AROUND YOU THAT ARE ILL, THEY NEED TO BE CHECKED FOR INFLUENZA. Referrals: KASSIDY SOARES (PCP) Time of Disposition: 13:24 I have reviewed the case, and I agree with, Diagnosis and Plan KEL SAUCEDO NP Jul 29, 2024 11:40
[2024-07-29] MEDS: ketOROlac 30MG VIAL (30MG/ML) IVP ONE (11:51)
[2024-07-29] MEDS: 0.9%NACL 1000ML 1,000 ML IV ONE (11:51)
[2024-07-29] MEDS: dexaMETHasone SOD PHOSPHATE 4 MG/ML 1ML VIAL IVP ONE (11:52)
[2024-07-29 11:56] VITALS: BP 146/62; PULSE 73; RESP 16; TEMP 98.8; O2SAT 98
[2024-07-29 11:56] LABS: BASOPHILS # (AUTO) 0.03 K/uL (0.00-0.20); BASOPHILS % (AUTO) 0.4 % (0.0-5.0); EOSINOPHILS % (AUTO) 1.4 % (0.0-8.0); HEMATOCRIT 42.9 % (36-48); IMMATURE GRANULOCYTE ABSOLUTE 0.04 K/uL (0-1); LYMPHOCYTES # (AUTO) 2.8 K/uL (1.0-4.8); MEAN CORPUSCULAR HEMOGLOBIN 30.3 pg (27.0-33.0); MEAN CORPUSCULAR HGB CONC 34.5 g/dL (32.0-36.0); MEAN CORPUSCULAR VOLUME 87.9 fL (79-99); MONOCYTES # (AUTO) 0.8 K/uL (0.1-1.0); MONOCYTES % (AUTO) 11.2 % (3.0-13.0); NEUTROPHILS # (AUTO) 3.3 K/uL (1.8-7.7); NEUTROPHILS % (AUTO) 46.4 % (40.0-77.0); PLATELET COUNT (AUTO) 271 K/uL (130-400); RED BLOOD CELL COUNT(AUTO) 4.88 MIL/uL (4.00-5.50); WHITE BLOOD COUNT (AUTO) 7.1 K/uL (4.8-10.8)
--- NOTE | 2024-07-29 12:02 | HMCIMG ---
PORTABLE CHEST RADIOGRAPH INDICATION: SOB/COUGH COMPARISON: 05/27/2024 CTA chest FINDINGS: Heart size is normal. The pulmonary vascularity and lucia appear normal. No abnormal pulmonary parenchymal opacity or consolidation identified. No significant pleural effusion noted. No pneumothorax detected. IMPRESSION: No radiographic evidence for any acute cardiopulmonary process.
[2024-07-29 12:05] LABS: CREATININE 0.9 mg/dL (0.5-1.0); POTASSIUM 3.8 mmol/L (3.5-5.1)
[2024-07-29 12:28] LABS: RAPID GROUP A STREP negative (NEGATIVE)
[2024-07-29 12:30] LABS: APPEARANCE,URINE CLEAR (CLEAR); BILIRUBIN,URINE NEGATIVE (NEGATIVE); COLOR,URINE COLORLESS (YELLOW); GLUCOSE, URINE (UA) NEGATIVE (NEGATIVE); KETONES,URINE NEGATIVE (NEGATIVE); LEUKOCYTE ESTERASE ,URINE NEGATIVE Leu/uL (NEGATIVE); NITRATE,URINE NEGATIVE (NEGATIVE); OCCULT BLOOD,URINE NEGATIVE (NEGATIVE); PH,URINE 7.5 (5.0-8.0); PROTEIN,URINE NEGATIVE (NEGATIVE); UROBILINOGEN,URINE 0.2 mg/dL (0.2-1.0)
[2024-07-29 12:39] LABS: COVID19 (SARS ANTIGEN RAPID) PRESUMPTIVE NEGATIVE (NEGATIVE); INFLUENZA TYPE B Negative For Type B (NEGATIVE)
[2024-07-29 12:52] LABS: ADD UA MICROSCOPIC NO
[2024-07-29 13:21] LABS: INFLUENZA TYPE A Positive For Type A (NEGATIVE)
[2024-07-29] MEDS ORDERED: BENZ-39 PO (13:26)
[2024-07-29] MEDS ORDERED: OSEL75 PO (13:26)
[2024-07-29] MEDS ORDERED: METH4TAB3 PO (13:26)
[2024-07-29] MEDS: OSELTAMIVIR PHOSPHATE 75 MG CAP PO ONE (13:36)
== END 2024-07-29 13:40 | disposition home or self-care (01) ==
LOC: EDH 11:33
DX: J10.1 Influenza due to other identified influenza virus with other respiratory manifestations (principal); E78.00 Pure hypercholesterolemia, unspecified; Z20.822 Contact with and (suspected) exposure to COVID-19; Z88.5 Allergy status to narcotic agent; Z90.49 Acquired absence of other specified parts of digestive tract
CPT/HCPCS: 99284; 96374; 71045; 96375; 87426; 80048; 85025; 87880; 87804 ×2; 81003; 36415; J1100; J7030; J1885

== ENCOUNTER 2024-08-03 14:35 | Emergency (ER) | payer BC ==
[~2024-08-03] VITALS: Ht 154.9 cm; Wt 73.0 kg
[~2024-08-03 14:35] MED LIST changes: +BENZ-39 PO; +METH4TAB3 PO; +OSEL75 PO
--- NOTE | 2024-08-03 14:41 | ERN ---
ED Note History of Present Illness Stated Complaint: CP, SOB, DIZZINESS ONSET TODAY Chief Complaint: Chest Pain Time Seen by MD: 14:36 Dictation: PATIENT IS A 43-YEAR-OLD FEMALE COMING IN TODAY WITH DIFFUSE ANTERIOR CHEST PAIN THAT DOES NOT RADIATE, SHORTNESS A BREATH AND DIZZINESS ONSET THIS MORNING. NO JAW PAIN NO ARM PAIN NO BACK PAIN. STATES SHE DOES NOT HAVE A HISTORY OF CAD. NO FEVER NO CHILLS. Allergies: Coded Allergies: meperidine (Verified Allergy, Unknown, 04/19/20) Home Meds Active Scripts Methylprednisolone (Medrol) 4 Mg Tab.ds.pk, 1 TAB PO AD for 6 Days, #21 TAB 0 Refills 6 on day 1 then reduce by one tablet daily until gone Prov:KEL SAUCEDO NP 07/29/24 Benzonatate (Tessalon Perles) 100 Mg Cap, 100 MG PO TID for cough, #30 CAP 0 Refills Prov:KEL SAUCEDO NP 07/29/24 Oseltamivir Phosphate (Tamiflu) 75 Mg Cap, 1 CAP PO BID for 5 Days, #10 CAP 0 Refills Prov:KEL SAUCEDO NP 07/29/24 Hydroxyzine HCl (Hydroxyzine HCl) 25 Mg Tablet, 25 MG PO Q12H PRN for anxiety for 15 Days, #30 TAB Prov:JENNY PARRA 05/14/24 Albuterol Sulfate (Ventolin Hfa/Proventil Hfa/Proair Hfa) 90 Mcg Puff, 2 PUFF IH Q4H PRN for SHORTNESS OF BREATH/WHEEZING for 30 Days, #1 INH 0 Refills Prov:KEL SAUCEDO NP 05/08/24 Albuterol Sulfate (Ventolin Hfa/Proventil Hfa/Proair Hfa) 90 Mcg Puff, 2 PUFF IH Q4H for WHEEZING, #1 INHALER 0 Refills Prov:KYAW DALY MD 02/10/24 Reported Medications Multivitamin/Iron/Folic Acid (Centrum Women Tablet) 18 Mg Iron-400 Mcg Tablet, 1 EACH PO DAILY, TAB 05/13/24 Vitamin A (Vitamin A) 2,400 Mcg Capsule, 2400 MCG PO DAILY, CAP 05/13/24 Cholecalciferol (Vitamin D3) (Vitamin D3) 250 Mcg (78039 Unit) Capsule, 250 MCG PO DAILY, CAP 05/13/24 Atorvastatin Calcium (Atorvastatin Calcium) 20 Mg Tablet, 1 TAB PO HS 07/24/23 Zinc Sulfate (Zinc) 50 Mg Tablet, 50 MG PO DAILY, TAB 10/07/21 Ascorbic Acid (Vitamin C) 500 Mg Capsule, 500 MG PO DAILY, CAP 10/07/21 Past Medical History Past Medical History: High Cholesterol Surgical History: Cholecystectomy Family History: Negative Social History: Negative, Lives with family History: Not Applicable : 7 Para: 7 Aborts: 0 RN Note Reviewed/Agreed w/PFSH: Yes Review of System Dictation CONSTITUTIONAL: NEGATIVE EXCEPT FOR HPI HEAD/FACE: NEGATIVE EXCEPT FOR HPI EENT: NEGATIVE EXCEPT FOR HPI RESPIRATORY: NEGATIVE EXCEPT FOR HPI CHEST PAIN/SOB GASTROINTESTINAL/ABDOMINAL: NEGATIVE EXCEPT FOR HPI GENITOURINARY: NEGATIVE EXCEPT FOR HPI MUSCULOSKELETAL: NEGATIVE EXCEPT FOR HPI INTEGUMENTARY: NEGATIVE EXCEPT FOR HPI NEUROLOGICAL/PSYCH: NEGATIVE EXCEPT FOR HPI DIZZINESS HEMATOLOGIC/LYMPHATIC: NEGATIVE EXCEPT FOR HPI ALL SYSTEMS NEGATIVE, EXCEPT NOTED ABOVE. 13 POINT REVIEW OF SYSTEMS ASSESSED AND ALL NEGATIVE EXCEPT FOR ABOVE. Initial Vital Sign VS Vital Signs Date Time Temp Pulse Resp B/P (MAP) Pulse Ox O2 Delivery O2 Flow Rate FiO2 08/03/24 14:36 98.6 75 16 130/72 100 Room Air 0 08/03/24 16:11 21 Physical Exam Dictation VITAL SIGNS REVIEWED GENERAL APPEARANCE: ALERT, ORIENTED X 3, MILD ACUTE DISTRESS, WELL DEVELOPED, NOURISHED. ANXIOUS HEAD AND FACE: NON-TRAUMATIC. EYES: PERRL, PINK CONJUNCTIVAS, EYELID NO TRAUMA, ANTERIOR CHAMBER WITH ARCUS SENILIS. EARS: PINNAS INTACT AND NO SIGNS OF TRAUMA OR ERYTHEMA EAR CANALS CLEAR AND NO DISCHARGE TM NO ERYTHEMA NOSE: NO DISCHARGE, NO BLEEDING. OROPHARYNX: MOUTH NORMAL, TONGUE PINK, PHARYNX CLEAR,NO ERYTHEMA, TONSILS NO EXUDATES, NO ABSCESSES NOTED, MUCOUS MEMBRANE MOIST NECK: SUPPLE, NON-TENDER, NO THYROMEGALY, NO MASSES, NO JVD, NO BRUITS BREAST:DEFERRED CHEST:NO TENDERNESS, NO CREPITUS, NO PARADOXICAL MOVEMENT, NO RETRACTIONS LUNGS:CLEAR, WELL-VENTILATED, SYMMETRIC, NO RALES, NO WHEEZING, NO RHONCHI, NO STRIDOR, GOOD BREATH SOUNDS BILATERALLY HEART: REGULAR RATE, REGULAR RHYTHM, NO MURMUR, NO GALLOPS VASCULAR: NO PERIPHERAL EDEMA, ABDOMEN: SOFT, POSITIVE BOWEL SOUNDS, NONDISTENDED, NO GUARDING, NONTENDER, NO REBOUND, NO MASSES NO HEPATOMEGALY, NO SPLENOMEGALY, NO MATAMOROS'S SIGN, NO HERNIAS. RECTAL: DEFERRED GENITAL: DEFERRED NEUROLOGICAL: NORMAL SPEECH, MOTOR FUNCTION INTACT, SENSORY FUNCTION INTACT NIH IS 0 GAIT STEADY MUSCULOSKELETAL: NECK NONTENDER, FULL RANGE OF MOTION, BACK NONTENDER, FULL RANGE OF MOTION, EXTREMITIES: NONTENDER, FULL RANGE OF MOTION SKIN: COLOR PINK, DRY, NO TURGOR, NO RASH, NO LACERATIONS, NO ABRASIONS, NO CONTUSIONS. LYMPHATIC: DEFERRED Results (Laboratory/Radiology) Laboratory/Radiology SANDER: SOB/DIFFUSE CHEST ORDERING PHYSICIAN: KEL SAUCEDO NP PROCEDURE: CXR1VW - CHEST 1VW CHEST 1VW HISTORY: Shortness of breath COMPARISON: 07/29/2024 FINDINGS: A frontal projection of the chest was obtained. No acute pulmonary infiltrates is seen. The heart is borderline enlarged. Prominent interstitial markings are seen. No evidence of aortic calcification is seen. IMPRESSION: 1. No acute pulmonary infiltrate is seen. Prominent interstitial markings. Labs Reviewed?: Yes EKG Comment: EKG NORMAL SINUS RHYTHM/HEART RATE 76/AXIS NORMAL/NO ECTOPY ED Course ED Course 1625, PATIENT IN NO PAIN AT THIS TIME. SHE IS AWARE THAT CARDIAC WORKUP IS NE GATIVE EKG WAS NORMAL TROPONIN LESS THAN FOUR CHEST X-RAY CLEAR NO ELECTROLYTE IMBALANCE HEART Score Response (Comments) Value History: Low suspicion (0) 0 Age: 45-65yrs (+1) 1 Risk Factors: 1-2 risk factors (+1) 1 Initial Troponin: Normal limit (0) 0 Total 2 Medical Decision Making MDM MDM: DIFFERENTIAL DIAGNOSIS: ACS/AMI/ELECTROLYTE IMBALANCE/DEHYDRATION/PANIC ATTACK/ANXIETY/ATYPICAL CHEST PAIN RATIONALE: TESTS CONSIDERED AND ORDERED SECONDARY TO SHARED DECISION MAKING INCLUDE: RADIOLOGY/EKG/LABS PREVIOUS OUTSIDE RECORDS REVIEWED: OLD ER VISITS. REVIEWED RISK OF COMPLICATION AND/OR MORBIDITY OR MORTALITY OF PATIENT MANAGEMENT: NONE MEDICATIONS-PER MEDICATION RECONCILIATION SEE NURSE'S NOTES NEED FOR HOSPITALIZATION: PATIENT DOES NOT MEET CRITERIA FOR HOSPITALIZATION. NO NEED FOR EMERGENCY MAJOR/MINOR SURGERY: NO THERE ARE NO SOCIAL CONCERNS WITH THIS PATIENT. PRESCRIPTION DRUG MANAGEMENT NO PRESCRIPTIONS WILL INCLUDE SYMPTOMATIC CARE PATIENT'S PRIOR EXTERNAL MEDICAL RECORDS FROM OTHER ER VISITS WERE REVIEWED BY ME INDICATED. PRIOR TESTING AND RESULTS FROM PREVIOUS VISITS WERE REVIEWED. PRIOR TESTS WERE TAKEN INTO ACCOUNT WITH MEDICAL DECISION MAKING AND RESOURCE UTILIZATION, INDEPENDENT HISTORIAN/HISTORIANS WERE USED TO OBTAIN COMPLETE MEDICAL HISTORY. I INDEPENDENTLY INTERPRETED THE TEST THAT WERE PERFORMED, RESULTS WERE REVIEWED BY ME AND CONSIDERED FINDINGS ON RADIOLOGY IF ORDERED. MEDICAL MANAGEMENT AND EXAMINATION INTERPRETATION DISCUSSIONS WERE HAD BY ME WITH OTHER QUALIFIED HEALTHCARE PROFESSIONALS INDICATED FOR THE PATIENT'S CARE. DX & DISP Disposition: Discharge Departure Impression: Primary Impression: Atypical chest pain Additional Impression: Anxiety Condition: Stable Additional Instructions: FOLLOW-UP WITH PRIMARY CARE PROVIDER IN 1 TO 2 DAYS. TAKE MEDICATIONS DIRECTED HERE IN THE EMERGENCY ROOM. OKAY TO CONTINUE HOME MEDICATIONS UNLESS OTHERWISE DISCUSSED DURING YOUR VISIT IN THE EMERGENCY ROOM TODAY. RETURN TO YOUR NEAREST EMERGENCY ROOM IF SYMPTOMS WORSEN OR IF THERE IS NO IMPROVEMENT. CALL 911 IF YOU NEED IMMEDIATE ASSISTANCE. TAKE TYLENOL OR MOTRIN [id number] NEEDED AND IF NO CONTRAINDICATIONS ARE PRESENT. INCREASE ORAL HYDRATION. A WOUND CULTURE OR URINE CULTURE WAS ORDERED HERE IN THE EMERGENCY ROOM DEPARTMENT PLEASE FOLLOW-UP WITH PRIMARY CARE PROVIDER AND ADVISE THEM TO GET REPEAT PORTS FROM OUR FACILITY. IF YOU HAD ANY DAKSHA WRAP/SPLINTS THAT WERE APPLIED HERE, PLEASE DO NOT REMOVE THEM UNTIL YOU SEE YOUR PRIMARY CARE OR SPECIALTY. SEE YOUR PRIMARY CARE DOCTOR FOR FOLLOW UP IN 1-2 DAYS. DIET AND ACTIVITY TOLERATED. Referrals: KASSIDY SOARES (PCP) Time of Disposition: 16:28 I have reviewed the case, and I agree with, Diagnosis and Plan ATTESTATION BY PHYSICIAN I PERFORMED THE SUBSTANTIVE PORTION OF THE VISIT. I HAVE REVIEWED AND PERSONALLY MADE AND APPROVED THE MANAGEMENT PLAN THAT IS DOCUMENTED IN THE NOTE BY MYSELF FOR THE A PP. I ACKNOWLEDGED FOR RESPONSIBILITY FOR THE PATIENT'S MANAGEMENT PLAN. KEL SAUCEDO NP Aug 03, 2024 14:41 JESSICA DOMÍNGUEZ MD Aug 06, 2024 18:14
--- NOTE | 2024-08-03 15:20 | HMCIMG ---
CHEST 1VW HISTORY: Shortness of breath COMPARISON: 07/29/2024 FINDINGS: A frontal projection of the chest was obtained. No acute pulmonary infiltrates is seen. The heart is borderline enlarged. Prominent interstitial markings are seen. No evidence of aortic calcification is seen. IMPRESSION: 1. No acute pulmonary infiltrate is seen. Prominent interstitial markings.
--- NOTE | 2024-08-03 15:25 | EKG ---
[facility] Test Date: 2024-08-03 Test Time: 14:37:57 Pat Name: STARR JAMES Department: [facility] Room: Gender: F Tag Maker: [id number] : 1980 Requested By: KEL SAUCEDO Order Number: [id number] Reading MD: Tobin Sifuentes Measurements Intervals [place] Rate: 76 P: 93 ND: 64 QRS: 40 QRSD: 86 T: 6 QT: 423 QTc: 475 Interpretive Statements Sinus rhythm Compared to ECG 05/12/2024 12:24:42 No significant changes Electronically Signed On 08-03-2024 19:20:04 QUARRYING SPECIALIST by Tobin Sifuentes Please click the below link to view image of tracing.
[2024-08-03 16:07] LABS: BASOPHILS # (AUTO) 0.06 K/uL (0.00-0.20); BASOPHILS % (AUTO) 0.6 % (0.0-5.0); EOSINOPHILS % (AUTO) 1.9 % (0.0-8.0); HEMATOCRIT 44.1 % (36-48); IMMATURE GRANULOCYTE ABSOLUTE 0.19 K/uL (0-1); LYMPHOCYTES # (AUTO) 4.1 K/uL (1.0-4.8); LYMPHOCYTES % (AUTO) 38.3 % (21.0-51.0); MEAN CORPUSCULAR HEMOGLOBIN 30.9 pg (27.0-33.0); MEAN CORPUSCULAR VOLUME 90.9 fL (79-99); MONOCYTES # (AUTO) 0.8 K/uL (0.1-1.0); MONOCYTES % (AUTO) 7.7 % (3.0-13.0); NEUTROPHILS # (AUTO) 5.3 K/uL (1.8-7.7); NEUTROPHILS % (AUTO) 49.7 % (40.0-77.0); PLATELET COUNT (AUTO) 316 K/uL (130-400); RED BLOOD CELL COUNT(AUTO) 4.85 MIL/uL (4.00-5.50); RED CELL DISTRIBUTION WIDTH 11.9 % (11.0-15.5); WHITE BLOOD COUNT (AUTO) 10.6 K/uL (4.8-10.8)
[2024-08-03 16:11] VITALS: BP 130/72; PULSE 75; RESP 16; TEMP 98.6; O2SAT 100
[2024-08-03 16:16] LABS: CREATININE 0.8 mg/dL (0.5-1.0); POTASSIUM 3.8 mmol/L (3.5-5.1)
[2024-08-03 16:18] LABS: MAGNESIUM 2.1 mg/dL (1.80-2.40)
[2024-08-03] MEDS: ASPIRIN 325MG TAB PO ONE (16:20)
== END 2024-08-03 16:56 | disposition home or self-care (01) ==
LOC: EDH 14:35
DX: R07.89 Other chest pain (principal); F41.9 Anxiety disorder, unspecified; E78.00 Pure hypercholesterolemia, unspecified; Z88.5 Allergy status to narcotic agent; Z90.49 Acquired absence of other specified parts of digestive tract
CPT/HCPCS: 36415; 71045; 80048; 83735; 84484; 85025; 93005; 99284

== ENCOUNTER 2024-09-10 19:16 | Emergency (ER) | payer BC ==
[~2024-09-10] VITALS: Ht 157.5 cm; Wt 76.7 kg
[2024-09-10 19:48] LABS: BASOPHILS # (AUTO) 0.04 K/uL (0.00-0.20); BASOPHILS % (AUTO) 0.3 % (0.0-5.0); EOSINOPHILS # (AUTO) 0.24 K/uL (0.00-0.70); HEMATOCRIT 37.1 % (36-48); IMMATURE GRANULOCYTE ABSOLUTE 0.09 K/uL (0-1); LYMPHOCYTES # (AUTO) 4.6 K/uL (1.0-4.8); LYMPHOCYTES % (AUTO) 38.5 % (21.0-51.0); MEAN CORPUSCULAR HEMOGLOBIN 31.1 pg (27.0-33.0); MEAN CORPUSCULAR HGB CONC 34.5 g/dL (32.0-36.0); MONOCYTES % (AUTO) 8.7 % (3.0-13.0); NEUTROPHILS % (AUTO) 49.8 % (40.0-77.0); PLATELET COUNT (AUTO) 256 K/uL (130-400); RED BLOOD CELL COUNT(AUTO) 4.12 MIL/uL (4.00-5.50); RED CELL DISTRIBUTION WIDTH 12.1 % (11.0-15.5)
[2024-09-10 19:50] LABS: CREATININE 0.7 mg/dL (0.5-1.0); POTASSIUM 3.8 mmol/L (3.5-5.1)
--- NOTE | 2024-09-10 19:55 | EKG ---
[facility] Test Date: 2024-09-10 Test Time: 19:25:31 Pat Name: STARR JAMES Department: [facility] Room: Gender: Female Utility Agent: [id number] : 1980 Requested By: CHARAN BAPTISTE Order Number: [id number] Reading MD: Measurements Intervals [place] Rate: 61 P: 28 [place]: 211 QRS: 46 QRSD: 91 T: 46 QT: 490 QTc: 494 Interpretive Statements Sinus rhythm Prolonged [place] interval No previous ECG available for comparison Please click the below link to view image of tracing.
--- NOTE | 2024-09-10 19:58 | ERN ---
ED Note History of Present Illness Stated Complaint: CP Chief Complaint: Chest Pain Time Seen by MD: 19:22 Time Seen by Midlevel: 19:22 Dictation: The patient is a 43-year-old female with a history of hyperlipidemia, bradycardia, cholecystectomy who presents to the emergency department with complaints of chest pain on and off onset yesterday. Patient reports chest feels like punctures and only last a few seconds. Reports associated shortness of breath. Denies any cough, fevers. Patient reports she had a left heart catheterization done at [facility] in May 21, [address] Bradford and was normal. Denies taking any aspirin or any other antiplatelet medication. Allergies: Coded Allergies: meperidine (Verified Allergy, Unknown, 04/19/20) Home Meds Active Scripts Methylprednisolone (Medrol) 4 Mg Tab.ds.pk, 1 TAB PO AD for 6 Days, #21 TAB 0 Refills 6 on day 1 then reduce by one tablet daily until gone Prov:KEL SAUCEDO NP 07/29/24 Benzonatate (Tessalon Perles) 100 Mg Cap, 100 MG PO TID for cough, #30 CAP 0 Refills Prov:KEL SAUCEDO NP 07/29/24 Oseltamivir Phosphate (Tamiflu) 75 Mg Cap, 1 CAP PO BID for 5 Days, #10 CAP 0 Refills Prov:KEL SAUCEDO NP 07/29/24 Hydroxyzine HCl (Hydroxyzine HCl) 25 Mg Tablet, 25 MG PO Q12H PRN for anxiety for 15 Days, #30 TAB Prov:JENNY PARRA 05/14/24 Albuterol Sulfate (Ventolin Hfa/Proventil Hfa/Proair Hfa) 90 Mcg Puff, 2 PUFF IH Q4H PRN for SHORTNESS OF BREATH/WHEEZING for 30 Days, #1 INH 0 Refills Prov:KEL SAUCEDO NP 05/08/24 Albuterol Sulfate (Ventolin Hfa/Proventil Hfa/Proair Hfa) 90 Mcg Puff, 2 PUFF IH Q4H for WHEEZING, #1 INHALER 0 Refills Prov:KYAW DALY MD 02/10/24 Reported Medications Multivitamin/Iron/Folic Acid (Centrum Women Tablet) 18 Mg Iron-400 Mcg Tablet, 1 EACH PO DAILY, TAB 9/12/24 Vitamin A (Vitamin A) 2,400 Mcg Capsule, 2400 MCG PO DAILY, CAP 05/13/24 Cholecalciferol (Vitamin D3) (Vitamin D3) 250 Mcg (88881 Unit) Capsule, 250 MCG PO DAILY, CAP 05/13/24 Atorvastatin Calcium (Atorvastatin Calcium) 20 Mg Tablet, 1 TAB PO HS 07/24/23 Zinc Sulfate (Zinc) 50 Mg Tablet, 50 MG PO DAILY, TAB 10/07/21 Ascorbic Acid (Vitamin C) 500 Mg Capsule, 500 MG PO DAILY, CAP 10/07/21 Past Medical History Past Medical History: High Cholesterol, Other Additional Past Medical Hx: BRADYCARDIA Surgical History: Cholecystectomy Family History: Negative Social History: Negative, Lives with family History: Not Applicable : 7 Para: 7 Aborts: 0 RN Note Reviewed/Agreed w/PFSH: Yes Review of System Dictation Constitutional: Negative for fever,chills, and weight loss Eyes: Negative for injury, pain,redness, and discharge ENT: Negative for injury,pain or swelling Cardiovascular: Negative for palpitations, and edema positive for chest pain Respiratory: Negative for cough, and wheezing, positive for shortness of breath Abdomen/GI: Negative for abdominal pain, nausea, vomiting, diarrhea, and constipation Back: Negative for injury and pain : Negative for injury, bleeding and discharge MS/Extremity: Negative for injury and deformity Skin: Negative for rash, and discoloration Neuro: Negative for headache, weakness, numbness, tingling, and seizure Psych: Negative for suicide ideation, homicidal ideation, and hallucinations Initial Vital Sign VS Vital Signs Date Time Temp Pulse Resp B/P (MAP) Pulse Ox O2 Delivery O2 Flow Rate FiO2 09/10/24 19:19 98.1 60 20 135/69 100 Room Air 09/10/24 20:02 0 21 Physical Exam Dictation Vital Signs reviewed General Appearance: Alert, oriented x 3, no acute distress, well developed, nourished. Head and Face: non-traumatic. Eyes: PERRL, pink conjunctivas, eyelid no trauma, anterior chamber with arcus senilis. Ears: Pinnas intact and no signs of trauma or erythema ear canals clear and no discharge TM no erythema Nose: No discharge, no bleeding. Oropharynx: Mouth normal, tongue pink. pharynx clear,no erythema, tonsils no exudates, no abscesses noted, mucous membrane moist Neck: Supple, non-tender, no thyromegaly, no masses, no JVD, no bruits Breast:Deferred Chest:No tenderness, no crepitus, no paradoxical movement, no retractions Lungs:Clear, well-ventilated, symmetric, no rales, no wheezing, no rhonchi, no stridor, good breath sounds bilaterally Heart: Regular rate, regular rhythm, no murmur, no gallops Vascular: no peripheral edema, Abdomen: Soft, positive bowel sounds, nondistended, no guarding, Tenderness to chest with palpation, no rebound, no masses no hepatomegaly, no splenomegaly, no Braun's sign, no hernias. Rectal: Deferred Genital: Deferred Neurological: Normal speech, motor function intact, sensory function intact Musculoskeletal: Neck nontender, full range of motion, back nontender, full range of motion, Extremities: nontender, full range of motion Skin: Color pink, dry, no turgor, no rash, no lacerations, no abrasions, no contusions. Lymphatic: Deferred Results (Laboratory/Radiology) Laboratory/Radiology Laboratory Tests Test 09/10/24 19:35 09/10/24 19:38 09/10/24 20:03 09/10/24 20:15 White Blood Count 12.0 K/uL (4.8-10.8) H Red Blood Count 4.12 MIL/uL (4.00-5.50) Hemoglobin 12.8 g/dL (12.0-16.0) Hematocrit 37.1 % (36-48) Mean Corpuscular Volume 90.0 fL (79-99) Mean Corpuscular Hemoglobin 31.1 pg (27.0-33.0) Mean Corpuscular Hemoglobin Concent 34.5 g/dL (32.0-36.0) Red Cell Distribution Width 12.1 % (11.0-15.5) Platelet Count 256 K/uL (130-400) Mean Platelet Volume 9.4 fL (7.5-10.5) Immature Granulocyte % (Auto) 0.7 % (0-1) Neutrophils (%) (Auto) 49.8 % (40.0-77.0) Lymphocytes (%) (Auto) 38.5 % (21.0-51.0) Monocytes (%) (Auto) 8.7 % (3.0-13.0) Eosinophils (%) (Auto) 2.0 % (0.0-8.0) Basophils (%) (Auto) 0.3 % (0.0-5.0) Neutrophils # (Auto) 6.0 K/uL (1.8-7.7) Lymphocytes # (Auto) 4.6 K/uL (1.0-4.8) Monocytes # (Auto) 1.0 K/uL (0.1-1.0) Eosinophils # (Auto) 0.24 K/uL (0.00-0.70) Basophils # (Auto) 0.04 K/uL (0.00-0.20) Absolute Immature Granulocyte (auto 0.09 K/uL (0-1) Nucleated Red Blood Cells 0.0 % (0.0-0.19) Sodium Level 141 mmol/L (136-145) Potassium Level 3.8 mmol/L (3.5-5.1) Chloride Level 104 mmol/L (101-111) Carbon Dioxide Level 27 mmol/L (21-32) Blood Urea Nitrogen 17 mg/dL (7-18) Creatinine 0.7 mg/dL (0.5-1.0) Glomerular Filtration Rate Calc 109 mL/min (>90) Random Glucose 95 mg/dL (70-105) Total Calcium 8.8 mg/dL (8.5-10.1) Total Creatine Kinase 45 U/L (21-232) Troponin I High Sensitivity < 4 ng/L (4-50) L B-Type Natriuretic Peptide 14 pg/mL (0-100) Urine Color COLORLESS (YELLOW) Urine Appearance CLEAR (CLEAR) Urine pH 6.5 (5.0-8.0) Urine Specific [place] 1.011 (1.001-1.031) Urine Protein NEGATIVE mg/dL (NEGATIVE) Urine Glucose (UA) NEGATIVE mg/dL (NEGATIVE) Urine Ketones NEGATIVE mg/dL (NEGATIVE) Urine Occult Blood NEGATIVE (NEGATIVE) Urine Nitrate NEGATIVE (NEGATIVE) Urine Bilirubin NEGATIVE mg/dL (NEGATIVE) Urine Urobilinogen 0.2 mg/dL (0.2-1.0) Urine Leukocyte Esterase NEGATIVE [place]/uL Urine HCG, Qualitative NEGATIVE (NEGATIVE) Urine Opiates Screen NEGATIVE (NEGATIVE) Urine Barbiturates Screen NEGATIVE (NEGATIVE) Urine Phencyclidine Screen NEGATIVE (NEGATIVE) Urine Amphetamines Screen NEGATIVE (NEGATIVE) Urine Benzodiazepines Screen NEGATIVE (NEGATIVE) Urine Cocaine Screen NEGATIVE (NEGATIVE) Urine Marijuana (THC) Screen NEGATIVE (NEGATIVE) Troponin I < 0.05 ng/mL (0.00-0.05) Influenza Type A Antigen Negative For Type A Influenza Type B Antigen Negative For Type B SARS-CoV-2 Antigen (Rapid) PRESUMPTIVE NEGATIVE Test 09/10/24 21:16 Troponin I High Sensitivity < 4 ng/L (4-50) L Labs Reviewed?: Yes EKG: (+) rhythm (Sinus rhythm) EKG Comment: EKG 09/10/2024 192 ventricular rate 61, regular rate and rhythm, normal sinus rhythm, no STEMI ED Course ED Course Orders Procedure Category Date Status Time Vital Signs Per CPOE 09/10/24 Transmitted Routine 19:20 B-Type Natriuretic LAB 09/10/24 Complete Peptide 19:20 Chest 1vw RAD 09/10/24 Taken 19:20 12 Lead Ekg Tracing- EKG 09/10/24 Complete Technical 19:20 Oxygen By Nc/Pulse Ox CPOE 09/10/24 Transmitted 19:20 Maintain Iv CPOE 09/10/24 Transmitted 19:20 Iv Insertion CPOE 09/10/24 Transmitted 19:20 Cardiac Monitoring CPOE 09/10/24 Transmitted 19:20 Pulse Oximetry With CPOE 09/10/24 Transmitted Vs And Prn 19:20 Cbc With Differential LAB 09/10/24 Complete 19:20 Activity: Br W/Brp CPOE 09/10/24 Transmitted With Assist 19:20 Creatine Kinase, Total LAB 09/10/24 Complete 19:20 Urinalysis Profile LAB 09/10/24 Complete 19:20 Troponin Poc Order LAB 09/10/24 Complete Only 19:20 Bedside Troponin-I LAB.ER 09/10/24 In Process (Poc) 19:20 Basic Metabolic Panel LAB 09/10/24 Complete 19:20 ,Urine Test LAB 09/10/24 Complete 19:20 Troponin I High LAB 09/10/24 Complete Sensitivity 19:20 Nitroglycerin 1gm PHA 09/10/24 Complete Oint (Nitroglycerin 1g 20:00 Aspirin 325mg Tab PHA 09/10/24 Complete (Aspirin 325mg Tab) 20:00 Drug Screen Urine LAB 09/10/24 Complete 19:52 Influenza Type A & B, LAB 09/10/24 Complete Rapid 20:13 Covid19 (Sars Antigen LAB 09/10/24 Complete Rapid) 20:13 Troponin I High LAB 09/10/24 Complete Sensitivity 20:47 Current Medications Medications (Trade) Dose Ordered Sig/Isatu Route PRN Reason Start Time Stop Time Status Last Admin Dose Admin Aspirin (Aspirin 325mg Tab) 325 mg ONCE ONCE PO 09/10/24 20:00 09/10/24 20:01 DC 09/10/24 20:09 Nitroglycerin (Nitroglycerin 1gm Oint) 1 inch ONCE ONCE TD 09/10/24 20:00 09/10/24 20:01 DC 09/10/24 20:08 Vital Signs Date Time Temp Pulse Resp B/P (MAP) Pulse Ox O2 Delivery O2 Flow Rate FiO2 09/10/24 21:13 61 14 115/50 98 Room Air* 0 21 09/10/24 20:02 58 14 134/72 98 Room Air* 0 21 09/10/24 19:19 98.1 60 20 135/69 100 Room Air HEART Score Response (Comments) Value History: Low suspicion (0) 0 EKG: Normal 0 Age: 45-65yrs (+1) 1 Risk Factors: 1-2 risk factors (+1) 1 Initial Troponin: Normal limit (0) 0 Total 2 Medical Decision Making MDM The patient is a 43-year-old female with a history of hyperlipidemia, bradycar marcy, cholecystectomy who presents to the emergency department with complaints of chest pain on and off onset yesterday. Patient reports chest feels like punctures and only last a few seconds. Reports associated shortness of breath. Denies any cough, fevers. Patient reports she had a left heart catheterization done at [facility] in May 21, [address] Bradford and was normal. Denies taking any aspirin or any other antiplatelet medication. Currently not having any chest pain. CBC showed mild leukocytosis, no anemia, chemistry showed no electrolyte imbalance, troponin negative x2, normal renal function, urinalysis unremarkable. Chest x-ray with no acute pathology. Patient continues with no chest pain will be discharged to follow up with PCP in [employer]. Differential diagnosis: ACS, pneumonia, pneumothorax, anxiety, gastritis Need for hospitalization: Patient does not meet criteria for hospitalization. There are no social concerns with this patient. DX & DISP Disposition: Discharge Departure Impression: Primary Impression: Atypical chest pain Condition: Stable Additional Instructions: Please follow up with your primary doctor in your corporate ethics officer as soon as possible. Please return to ER if symptoms worsen. FOLLOW-UP WITH PRIMARY CARE PROVIDER IN 1 TO 2 DAYS. TAKE MEDICATIONS DIRECTED HERE IN THE EMERGENCY ROOM. OKAY TO CONTINUE HOME MEDICATIONS UNLESS OTHERWISE DISCUSSED DURING YOUR VISIT IN THE EMERGENCY ROOM TODAY. RETURN TO YOUR NEAREST EMERGENCY ROOM IF SYMPTOMS WORSEN OR IF THERE IS NO IMPROVEMENT. CALL 911 IF YOU NEED IMMEDIATE ASSISTANCE. TAKE TYLENOL OR MOTRIN [id number] NEEDED AND IF NO CONTRAINDICATIONS ARE PRESENT. INCREASE ORAL HYDRATION. A WOUND CULTURE OR URINE CULTURE WAS ORDERED HERE IN THE EMERGE [facility] ROOM DEPARTMENT PLEASE FOLLOW-UP WITH PRIMARY CARE PROVIDER AND ADVISE THEM TO GET REPEAT PORTS FROM OUR FACILITY. IF YOU HAD ANY DAKSHA WRAP/SPLINTS THAT WERE APPLIED HERE, PLEASE DO NOT REMOVE THEM UNTIL YOU SEE YOUR PRIMARY CARE OR SPECIALTY. Referrals: KASSIDY SOARES (PCP) Time of Disposition: 22:29 I have reviewed the case, and I agree with, Diagnosis and Plan LUIS E CHRISTINA ASSEMBLY MACHINE OPERATOR Sep 10, 2024 19:58
[2024-09-10 20:03] LABS: APPEARANCE,URINE CLEAR (CLEAR); BILIRUBIN,URINE NEGATIVE (NEGATIVE); COLOR,URINE COLORLESS (YELLOW); GLUCOSE, URINE (UA) NEGATIVE (NEGATIVE); KETONES,URINE NEGATIVE (NEGATIVE); LEUKOCYTE ESTERASE ,URINE NEGATIVE Leu/uL (NEGATIVE); NITRATE,URINE NEGATIVE (NEGATIVE); OCCULT BLOOD,URINE NEGATIVE (NEGATIVE); PH,URINE 6.5 (5.0-8.0); PROTEIN,URINE NEGATIVE (NEGATIVE); UROBILINOGEN,URINE 0.2 mg/dL (0.2-1.0)
[2024-09-10 20:06] LABS: HCG,QUALITATIVE URINE NEGATIVE (NEGATIVE)
[2024-09-10] MEDS: NITROGLYCERIN 1GM OINT 1 INCH/1GM TD ONE (20:08)
[2024-09-10 20:09] LABS: ADD UA MICROSCOPIC NO
[2024-09-10] MEDS: ASPIRIN 325MG TAB PO ONE (20:09)
[2024-09-10 20:20] LABS: B-TYPE NATRIURETIC PEPTIDE 14 pg/mL (0-100)
[2024-09-10 20:34] LABS: AMPHET/METH SCREEN,URINE NEGATIVE (NEGATIVE); BARBITURATE SCREEN, URINE NEGATIVE (NEGATIVE); BENZODIAZEPINES SCREEN,URINE NEGATIVE (NEGATIVE); CANNABINOID SCREEN,URINE NEGATIVE (NEGATIVE); COCAINE SCREEN,URINE NEGATIVE (NEGATIVE); OPIATE SCREEN,URINE NEGATIVE (NEGATIVE); PHENCYCLIDINE SCREEN,URINE NEGATIVE (NEGATIVE)
[2024-09-10 20:40] LABS: COVID19 (SARS ANTIGEN RAPID) PRESUMPTIVE NEGATIVE (NEGATIVE)
[2024-09-10 20:41] LABS: INFLUENZA TYPE A Negative For Type A (NEGATIVE); INFLUENZA TYPE B Negative For Type B (NEGATIVE)
[2024-09-10 22:34] VITALS: BP 131/72; PULSE 68; RESP 18; TEMP 98.7; O2SAT 98
--- NOTE | 2024-09-11 08:31 | HMCIMG ---
CHEST 1VW HISTORY: Chest pain COMPARISON: None FINDINGS: A frontal projection of the chest was obtained. No acute pulmonary infiltrates is seen. The heart is normal in size. Prominent interstitial markings are seen. No evidence of aortic calcification is seen. IMPRESSION: 1. No acute pulmonary infiltrate is seen.
== END 2024-09-10 22:41 | disposition home or self-care (01) ==
LOC: EDH 19:16
DX: R07.89 Other chest pain (principal); E78.00 Pure hypercholesterolemia, unspecified; Z20.822 Contact with and (suspected) exposure to COVID-19; Z88.5 Allergy status to narcotic agent; Z90.49 Acquired absence of other specified parts of digestive tract; Z79.899 Other long term (current) drug therapy
CPT/HCPCS: 36415; 71045; 80048; 80305; 81003; 81025; 82550; 83880; 84484; 85025; 87426; 87804; 93005; 99284

== ENCOUNTER 2024-11-16 10:18 | Emergency (ER) | payer BC ==
[~2024-11-16] VITALS: Ht 154.9 cm; Wt 74.8 kg
--- NOTE | 2024-11-16 10:32 | ERN ---
General Chief Complaint: Ankle Problem Stated Complaint: SPRAINED ANKLE DUE TO FALL Time Seen by MD: 10:20 Source: patient History of Present Illness Initial Comments PATIENT IS A 43-YEAR-OLD FEMALE COMING IN TO BE EVALUATED FOR LEFT ANKLE PAIN. PATIENT STATES THAT LAST NIGHT WHILE AMBULATING SHE TWISTED HER LEFT ANKLE. STATES THAT THERE IS TENDERNESS TO AMBULATION AND PAIN IS EXACERBATED WITH FLEXION AND EXTENSION. Allergies: Coded Allergies: meperidine (Verified Allergy, Unknown, 04/19/20) Home Meds Active Scripts Methylprednisolone (Medrol) 4 Mg Tab.ds.pk, 1 TAB PO AD for 6 Days, #21 TAB 0 Refills 6 on day 1 then reduce by one tablet daily until gone Prov:KEL SAUCEDO NP 07/29/24 Benzonatate (Tessalon Perles) 100 Mg Cap, 100 MG PO TID for cough, #30 CAP 0 Refills Prov:KEL SAUCEDO NP 07/29/24 Oseltamivir Phosphate (Tamiflu) 75 Mg Cap, 1 CAP PO BID for 5 Days, #10 CAP 0 Refills Prov:KEL SAUCEDO NP 07/29/24 Hydroxyzine HCl (Hydroxyzine HCl) 25 Mg Tablet, 25 MG PO Q12H PRN for anxiety for 15 Days, #30 TAB Prov:JENNY PARRAP 05/14/24 Albuterol Sulfate (Ventolin Hfa/Proventil Hfa/Proair Hfa) 90 Mcg Puff, 2 PUFF IH Q4H PRN for SHORTNESS OF BREATH/WHEEZING for 30 Days, #1 INH 0 Refills Prov:KEL SAUCEDO NP 05/08/24 Albuterol Sulfate (Ventolin Hfa/Proventil Hfa/Proair Hfa) 90 Mcg Puff, 2 PUFF IH Q4H for WHEEZING, #1 INHALER 0 Refills Prov:KYAW DALY MD 02/10/24 Reported Medications Multivitamin/Iron/Folic Acid (Centrum Women Tablet) 18 Mg Iron-400 Mcg Tablet, 1 EACH PO DAILY, TAB 05/13/24 Vitamin A (Vitamin A) 2,400 Mcg Capsule, 2400 MCG PO DAILY, CAP 05/13/24 Cholecalciferol (Vitamin D3) (Vitamin D3) 250 Mcg (53835 Unit) Capsule, 250 MCG PO DAILY, CAP 05/13/24 Atorvastatin Calcium (Atorvastatin Calcium) 20 Mg Tablet, 1 TAB PO HS 07/24/23 Zinc Sulfate (Zinc) 50 Mg Tablet, 50 MG PO DAILY, TAB 10/07/21 Ascorbic Acid (Vitamin C) 500 Mg Capsule, 500 MG PO DAILY, CAP 10/07/21 Past Medical History Past Medical History: High Cholesterol, Other Medical History Other: BRADYCARDIA Past Surgical History: Cholecystectomy Family History Family History: Negative Social History Social History: Negative, Lives with family Female( History) History: Not Applicable : 7 Para: 7 Aborts: 0 ROS Dictation CONSTITUTIONAL: NO CHILLS, NO FEVER, NO WEAKNESS, NO DIAPHORESIS, NO MALAISE. HEAD/FACE: NO SIGNS OF TRAUMA. EENT: NO EYE PAIN, NO BLURRED VISION, NO TEARING, NO DOUBLE VISION, NO EAR PAIN, NO EAR DISCHARGE, NO NOSE PAIN, NO NASAL CONGESTION, NO THROAT PAIN, NO THROAT SWELLING, NO MOUTH PAIN. RESPIRATORY: NO COUGH, NO ORTHOPNEA, NO SOB, NO STRIDOR, NO WHEEZING. CARDIOVASCULAR: NO CHEST PAIN, NO EDEMA, NO PALPITATIONS, NO SYNCOPE. GASTROINTESTINAL/ABDOMINAL: NO ABDOMINAL PAIN, NO CONSTIPATION, NO DIARRHEA, NO NAUSEA, NO VOMITING. GENITOURINARY: NO ABNORMAL DISCHARGE, NO DYSURIA, NO FREQUENT URINATION, NO HEM ATURIA. NO COMPLAINTS OF PAIN IN THE GENITALS. MUSCULOSKELETAL: NO BACK PAIN, NO GOUT, JOINT PAIN, JOINT SWELLING, MUSCLE PA IN, NO MUSCLE STIFFNESS, NO NECK PAIN. INTEGUMENTARY: NO CHANGE IN COLOR, NO CHANGE IN HAIR/NAILS, NO DRYNESS, NO LESION, NO LUMPS, NO RASH. NEUROLOGICAL/PSYCH: NO ANXIETY, NOT DEPRESSED, NO EMOTIONAL PROBLEM, NO HEADACHE, NO NUMBNESS, NO PRE-EXISTING DEFICIT, NO HISTORY OF SEIZURES, NO TREMORS, NO WEAKNESS. HEMATOLOGIC/LYMPHATIC: NOT ANEMIC, NO HISTORY OF BLOOD CLOTS, NO APPARENT BLEEDING, NO BRUISING, GLANDS NOT SWOLLEN. ALL SYSTEMS NEGATIVE, EXCEPT NOTED. Physical Exam Physical Exam Dictation VITAL SIGNS: REVIEWED. GENERAL APPEARANCE: ALERT, ORIENTED X3, NO ACUTE DISTRESS, OBESE. HEAD AND FACE: NON-TRAUMATIC. EYES: PERRL, PINK CONJUNCTIVAS, EYELID NO TRAUMA, ANTERIOR CHAMBER CLEAR. EARS: PINNAS INTACT AND NO SIGNS OF TRAUMA OR ERYTHEMA. EAR CANALS CLEAR AND NO DISCHARGE. TMS NO ERYTHEMA. NOSE: NO DISCHARGE, NO BLEEDING. OROPHARYNX: MOUTH NORMAL, TEETH NO CARIES, TONGUE PINK. PHARYNX CLEAR, NO ERYTHEMA. TONSILS NO EXUDATES, NO ABSCESSES NOTED. MUCOUS MEMBRANE MOIST. NECK: SUPPLE, NON-TENDER, NO THYROMEGALY, NO MASSES, NO JVD, NO BRUITS. BREAST: DEFERRED. CHEST: NO TENDERNESS, NO CREPITUS, NO PARADOXICAL MOVEMENT, NO RETRACTIONS. LUNGS: CLEAR, WELL-VENTILATED, SYMMETRIC, NO RALES, NO WHEEZING, NO RHONCHI, NO STRIDOR, GOOD BREATH SOUNDS BILATERALLY. HEART: REGULAR RATE, REGULAR RHYTHM, NO MURMUR, NO GALLOPS. VASCULAR: NO PERIPHERAL EDEMA. ABDOMEN: SOFT, POSITIVE BOWEL SOUNDS, NONDISTENDED, NO GUARDING, NONTENDER, NO REBOUND, NO MASSES NO HEPATOMEGALY, NO SPLENOMEGALY, NO MATAMOROS'S SIGN, NO HERNIAS. RECTAL: DEFERRED. GENITAL: DEFERRED. NEUROLOGICAL: NORMAL SPEECH, GROSS MOTOR FUNCTION INTACT, GROSS SENSORY FUNCTION INTACT. MUSCULOSKELETAL: NECK NONTENDER, FULL RANGE OF MOTION, BACK NONTENDER, FULL RANGE OF MOTION. EXTREMITIES: NONTENDER, FULL RANGE OF MOTION. LEFT ANKLE TENDERNESS TO PALPATION, PAIN ON DORSIFLEXION AND PLANTAR FLEXION SKIN: COLOR PINK, DRY, NO TURGOR, NO RASH, NO LACERATIONS, NO ABRASIONS, NO CONTUSIONS. LYMPHATICS: DEFERRED. Results Laboratory and Microbiology Labs Reviewed?: Yes EKG/XRAY/US/CT/MRI X-RAY Comment [id number] [address] IMAGING REPORT Signed PATIENT: STARR JAMES MR#: [id number] : 1980 SEX: F AGE: 43 LOCATION: ED ORDER 1029 STATUS: [facility] REPORT#: [id number] SERVICE 1028 REASON: PAIN ORDERING PHYSICIAN: JESSICA DOMÍNGUEZ MD PROCEDURE: [id number] - ANKLE COMP 3VWS LT LEFT ANKLE RADIOGRAPHS - 3 VIEWS INDICATION: Pain COMPARISON: None FINDINGS: AP, lateral, and oblique views. No fracture or dislocation identified. The talar dome is intact. Ankle mortise and tibial plafond are well maintained. No significant joint effusion is present. Subcentimeter plantar calcaneal spur. IMPRESSION: No evidence for fracture or dislocation. DICTATED BY: NEIL TREJO MD DATE: 11/16/24 1119 ELECTRONICALLY SIGNED BY: NEIL TREJO MD DATE: 11/16/24 1122 MDM MDM: DIFFERENTIAL DIAGNOSIS: EQUAL SPRAIN, ANKLE FRACTURE, PATIENT IS A 43-YEAR-OLD FEMALE COMING IN TO BE EVALUATED FOR ANKLE DISCOMFORT. X-RAY DID NOT DISCLOSE ACUTE FINDINGS. PATIENT WAS DISCHARGED WITH A DIAGNOSIS OF ANKLE SPRAIN. ED Course Orders Procedure Category Date Status Time Ankle Comp 3vws Lt RAD 11/16/24 Resulted 10:28 Acetaminophen 500mg PHA 11/16/24 Complete Tab (Tylenol 500mg T 10:30 Current Medications Medications (Trade) Dose Ordered Sig/Isatu Route PRN Reason Start Time Stop Time Status Last Admin Dose Admin Acetaminophen (TYLenol 500MG TAB) 500 mg ONCE ONCE PO 11/16/24 10:30 11/16/24 10:31 DC 11/16/24 11:12 Vital Signs Date Time Temp Pulse Resp B/P (MAP) Pulse Ox O2 Delivery O2 Flow Rate FiO2 11/16/24 10:25 97.9 59 16 113/65 97 Room Air DX & DISP Disposition: Discharge Departure Impression: Primary Impression: Ankle sprain Condition: Stable Scripts Naproxen (Naproxen) 500 Mg Tablet 1 TAB PO BID for pain for 7 Days, #14 TAB 0 Refills Prov: JESSICA DOMÍNGUEZ MD 11/16/24 Additional Instructions: FOLLOW-UP WITH PRIMARY CARE PROVIDER IN 1 TO 2 DAYS. TAKE MEDICATIONS DIRECTED HERE IN THE EMERGENCY ROOM. OKAY TO CONTINUE HOME MEDICATIONS UNLESS OTHERWISE DISCUSSED DURING YOUR VISIT IN THE EMERGENCY ROOM TODAY. RETURN TO YOUR NEAREST EMERGENCY ROOM IF SYMPTOMS WORSEN OR IF THERE IS NO IMPROVEMENT. CALL 911 IF YOU NEED IMMEDIATE ASSISTANCE. TAKE TYLENOL [id number] NEEDED AND IF NO CONTRAINDICATIONS ARE PRESENT. INCREASE ORAL HYDRATION. A WOUND CULTURE OR URINE CULTURE WAS ORDERED HERE IN THE EMERGENCY ROOM DEPARTMENT PLEASE FOLLOW-UP WITH PRIMARY CARE PROVIDER AND ADVISE THEM TO GET REPEAT PORTS FROM OUR FACILITY. IF YOU HAD ANY DAKSHA WRAP/SPLINTS THAT WERE APPLIED HERE, PLEASE DO NOT REMOVE THEM UNTIL YOU SEE YOUR PRIMARY CARE OR SPECIALTY. REFERRALS: Referrals: KASSIDY SOARES (PCP) Time of Disposition: 11:34 JESSICA DOMÍNGUEZ MD Nov 16, 2024 10:32
[2024-11-16] MEDS: acetaMINOPHEN 500 MG TABLET PO ONE (11:12)
--- NOTE | 2024-11-16 11:22 | HMCIMG ---
LEFT ANKLE RADIOGRAPHS - 3 VIEWS INDICATION: Pain COMPARISON: None FINDINGS: AP, lateral, and oblique views. No fracture or dislocation identified. The talar dome is intact. Ankle mortise and tibial plafond are well maintained. No significant joint effusion is present. Subcentimeter plantar calcaneal spur. IMPRESSION: No evidence for fracture or dislocation.
[2024-11-16] MEDS ORDERED: NAPR-1194 PO (11:35)
[2024-11-16 12:15] VITALS: BP 115/73; PULSE 60; RESP 16; TEMP 97.9; O2SAT 97
--- NOTE | 2024-11-16 12:18 | NUR ---
pt walked in with her crutches, able to ambulate with crutches, left ankle pain when weight is applied following injury yesterday
== END 2024-11-16 12:23 | disposition home or self-care (01) ==
LOC: EDH 10:18
DX: S93.402A Sprain of unspecified ligament of left ankle, initial encounter (principal); E78.00 Pure hypercholesterolemia, unspecified; Z88.5 Allergy status to narcotic agent; Z90.49 Acquired absence of other specified parts of digestive tract; X50.1XXA Overexertion from prolonged static or awkward postures, initial encounter; Y93.89 Activity, other specified; Y92.89 Other specified places as the place of occurrence of the external cause; Y99.8 Other external cause status
CPT/HCPCS: 73610; 99283

== ENCOUNTER 2025-04-07 15:53 | Emergency (ER) | payer BC ==
[~2025-04-07] VITALS: Ht 154.9 cm; Wt 71.7 kg
[~2025-04-07 15:53] MED LIST changes: +NAPR-1194 PO
[2025-04-07 16:41] LABS: IMMATURE GRANULOCYTE ABSOLUTE 0.03 K/uL (0-1); NUCLEATED RED BLOOD CELLS 0.0 % (0.0-0.19); PLATELET COUNT (AUTO) 331 K/uL (130-400); RED BLOOD CELL COUNT(AUTO) 4.38 MIL/uL (4.00-5.50); RED CELL DISTRIBUTION WIDTH 12.3 % (11.0-15.5); WHITE BLOOD COUNT (AUTO) 8.2 K/uL (4.8-10.8)
[2025-04-07 16:50] LABS: CREATININE 0.8 mg/dL (0.5-1.0); GLOMERULAR FILTR. RATE CALC 92.0 mL/min (>90); GLUCOSE,RANDOM 108.0 mg/dL (70-105); SODIUM SERUM 139.0 mmol/L (136-145); UREA NITROGEN, BLOOD 16.0 mg/dL (7-18)
[2025-04-07 16:59] LABS: ASPARTATE AMINOTRANSFERASE 14.0 U/L (10-37); TOTAL PROTEIN, SERUM 7.0 g/dL (6.0-8.3)
--- NOTE | 2025-04-07 17:05 | NUR ---
PT MOVED INTO ER BED 10 AT THIS TIME
--- NOTE | 2025-04-07 17:55 | ERN ---
ED Note History of Present Illness Stated Complaint: CP Chief Complaint: Chest Pain Time Seen by MD: 16:17 Dictation: 44-year-old female with a episode of chest pain sharp diffusely nonradiating happened earlier today while cooking in a hot kitchen. Patient denies any chest pain now no previous medical problems to include heart disease or hypertension patient does report dyslipidemia. Allergies: Coded Allergies: meperidine (Verified Allergy, Unknown, 04/19/20) Home Meds Active Scripts Naproxen (Naproxen) 500 Mg Tablet, 1 TAB PO BID for pain for 7 Days, #14 TAB 0 Refills Prov:JESSICA DOMÍNGUEZ MD 11/16/24 Methylprednisolone (Medrol) 4 Mg Tab.ds.pk, 1 TAB PO AD for 6 Days, #21 TAB 0 Refills 6 on day 1 then reduce by one tablet daily until gone Prov:KEL SAUCEDO NP 07/29/24 Benzonatate (Tessalon Perles) 100 Mg Cap, 100 MG PO TID for cough, #30 CAP 0 Refills Prov:KEL SAUCEDO NP 07/29/24 Oseltamivir Phosphate (Tamiflu) 75 Mg Cap, 1 CAP PO BID for 5 Days, #10 CAP 0 Refills Prov:KEL SAUCEDO NP 07/29/24 Hydroxyzine HCl (Hydroxyzine HCl) 25 Mg Tablet, 25 MG PO Q12H PRN for anxiety for 15 Days, #30 TAB Prov:JENNY PARRA 05/14/24 Albuterol Sulfate (Ventolin Hfa/Proventil Hfa/Proair Hfa) 90 Mcg Puff, 2 PUFF IH Q4H PRN for SHORTNESS OF BREATH/WHEEZING for 30 Days, #1 INH 0 Refills Prov:KEL SAUCEDO NP 05/08/24 Albuterol Sulfate (Ventolin Hfa/Proventil Hfa/Proair Hfa) 90 Mcg Puff, 2 PUFF IH Q4H for WHEEZING, #1 INHALER 0 Refills Prov:KYAW DALY MD 02/10/24 Reported Medications Multivitamin/Iron/Folic Acid (Centrum Women Tablet) 18 Mg Iron-400 Mcg Tablet, 1 EACH PO DAILY, TAB 05/13/24 Vitamin A (Vitamin A) 2,400 Mcg Capsule, 2400 MCG PO DAILY, CAP 9/12/24 Cholecalciferol (Vitamin D3) (Vitamin D3) 250 Mcg (74528 Unit) Capsule, 250 MCG PO DAILY, CAP 05/13/24 Atorvastatin Calcium (Atorvastatin Calcium) 20 Mg Tablet, 1 TAB PO HS 07/24/23 Zinc Sulfate (Zinc) 50 Mg Tablet, 50 MG PO DAILY, TAB 10/07/21 Ascorbic Acid (Vitamin C) 500 Mg Capsule, 500 MG PO DAILY, CAP 10/07/21 Past Medical History Past Medical History: High Cholesterol Additional Past Medical Hx: BRADYCARDIA Surgical History: Cholecystectomy Family History: Negative Social History: Negative, Lives with family History: Not Applicable : 7 Para: 7 Aborts: 0 Review of System Dictation Constitutional: Negative for fever,chills, and weight loss Eyes: Negative for injury, pain,redness, and discharge ENT: Negative for injury,pain or swelling Cardiovascular: Per HPI Respiratory: Negative for shortness of breath, cough, and wheezing, Abdomen/GI: Negative for abdominal pain, nausea, vomiting, diarrhea, and constipation Back: Negative for injury and pain : Negative for injury, bleeding and discharge MS/Extremity: Negative for injury and deformity Skin: Negative for rash, and discoloration Neuro: Negative for headache, weakness, numbness, tingling, and seizure Psych: Negative for suicide ideation, homicidal ideation, and hallucinations Initial Vital Sign VS Vital Signs Date Time Temp Pulse Resp B/P (MAP) Pulse Ox O2 Delivery O2 Flow Rate FiO2 04/07/25 15:55 98.4 100 16 129/65 97 Room Air 0 04/07/25 15:57 21 Physical Exam Dictation General: awake, alert, NAD Head/Face: Normocephalic, atraumatic Eyes: PERRL, EOMI, vision at baseline ENT: oral cavity clear, TMs clear, no signs of infection Neck: Trachea midline, supple, no nuchal rigidity Cardiovascular: RRR, normal S1/S2, No MRGs, no JVD Respiratory: CTAB, no respiratory distress, No rales or wheezes Abdomen: Soft, non-tender, non-distended, normal bowel sounds, no guarding or rebound. Skin: Warm, dry, normal turgor, no rash MS/Extremity: Pulses equal, no cyanosis, neurovascular intact, FROM Neuro: COAx4, GCS 15, strength 5/5, CN 2-12 intact, normal cerebellar exam, normal gait, Psych: Normal behavior, mood, and affect normal Results (Laboratory/Radiology) Laboratory/Radiology Laboratory Tests Test 04/07/25 16:26 White Blood Count 8.2 K/uL (4.8-10.8) Red Blood Count 4.38 MIL/uL (4.00-5.50) Hemoglobin 13.1 g/dL (12.0-16.0) Hematocrit 38.7 % (36-48) Mean Corpuscular Volume 88.4 fL (79-99) Mean Corpuscular Hemoglobin 29.9 pg (27.0-33.0) Mean Corpuscular Hemoglobin Concent 33.9 g/dL (32.0-36.0) Red Cell Distribution Width 12.3 % (11.0-15.5) Platelet Count 331 K/uL (130-400) Mean Platelet Volume 9.4 fL (7.5-10.5) Immature Granulocyte % (Auto) 0.4 % (0-1) Neutrophils (%) (Auto) 59.2 % (40.0-77.0) Lymphocytes (%) (Auto) 29.6 % (21.0-51.0) Monocytes (%) (Auto) 7.5 % (3.0-13.0) Eosinophils (%) (Auto) 2.9 % (0.0-8.0) Basophils (%) (Auto) 0.4 % (0.0-5.0) Neutrophils # (Auto) 4.9 K/uL (1.8-7.7) Lymphocytes # (Auto) 2.4 K/uL (1.0-4.8) Monocytes # (Auto) 0.6 K/uL (0.1-1.0) Eosinophils # (Auto) 0.24 K/uL (0.00-0.70) Basophils # (Auto) 0.03 K/uL (0.00-0.20) Absolute Immature Granulocyte (auto 0.03 K/uL (0-1) Nucleated Red Blood Cells 0.0 % (0.0-0.19) Sodium Level 139 mmol/L (136-145) Potassium Level 3.6 mmol/L (3.5-5.1) Chloride Level 105 mmol/L (101-111) Carbon Dioxide Level 27 mmol/L (21-32) Blood Urea Nitrogen 16 mg/dL (7-18) Creatinine 0.8 mg/dL (0.5-1.0) Glomerular Filtration Rate Calc 92 mL/min (>90) Random Glucose 108 mg/dL (70-105) H Total Calcium 8.7 mg/dL (8.5-10.1) Total Bilirubin 0.3 mg/dL (0.2-1.0) Direct Bilirubin 0.1 mg/dL (0.0-0.3) Aspartate Amino Transf (AST/SGOT) 14 U/L (10-37) Alanine Aminotransferase (ALT/SGPT) 28 U/L (12-78) Alkaline Phosphatase 82 U/L (50-136) Troponin I High Sensitivity < 4 ng/L (4-50) L Total Protein 7.0 g/dL (6.0-8.3) Albumin 3.7 g/dL (3.5-5.0) EKG: (+) NSR, (+) rhythm, (+) MO EKG Comment: Heart rate 91 normal intervals normal sinus rhythm, no STEMI or STEMI equivalent ED Course ED Course Orders Procedure Category Date Status Time 12 Lead Ekg Tracing- EKG 04/07/25 Logged Technical 15:57 12 Lead Ekg Tracing- EKG 04/07/25 Logged Technical 16:18 Basic Metabolic Panel LAB 04/07/25 Complete 16:18 Cbc With Differential LAB 04/07/25 Complete 16:18 Hepatic Function Panel LAB 04/07/25 Complete 16:18 Troponin I High LAB 04/07/25 Complete Sensitivity 16:18 Chest 1vw RAD 04/07/25 Logged 16:18 Troponin I High LAB 04/07/25 Logged Sensitivity 17:35 Vital Signs Date Time Temp Pulse Resp B/P (MAP) Pulse Ox O2 Delivery O2 Flow Rate FiO2 04/07/25 15:57 98.4 100 16 129/65 97 Room Air* 0 21 04/07/25 15:55 98.4 100 16 129/65 97 Room Air 0 Medical Decision Making MDM MDM: Differential diagnosis: Rationale: Tests considered and ordered secondary to shared decision making include: Previous outside records reviewed: Old ER visits. Risk of complication and/or morbidity or mortality of patient management: None Medications-Per medication reconciliation Need for hospitalization: Patient does not meet criteria for hospitalization. Need for emergency major/minor surgery: No There are no social concerns with this patient. Prescription drug management Prescriptions will include symptomatic care Patient's prior external medical records from other ER visits were reviewed by me as indicated. Prior testing and results from previous visits were reviewed. Prior tests were taken into account with medical decision making and resource utilization, independent historian/historians were used to obtain complete medical history. I independently interpreted the test that were performed, results were reviewed by me and considered findings on radiology if ordered. Medical management and examination interpretation discussions were had by me with other qualified healthcare professionals as indicated for the patient's care. Atypical chest pain, stable exam negative workup heart score 1 stable for discharge and outpatient follow up, PERC score negative DX & DISP Disposition: Discharge Departure Impression: Primary Impression: Chest pain Condition: Stable Referrals: KASSIDY SOARES (PCP) UMU DYE MD Apr 07, 2025 17:55
[2025-04-07 18:16] VITALS: BP 127/69; PULSE 89; RESP 18; TEMP 98.6; O2SAT 98
--- NOTE | 2025-04-07 19:54 | HMCIMG ---
EXAM: CR Chest, 1 View. CLINICAL HISTORY: cp COMPARISON: None provided. FINDINGS: LUNGS: The lungs show no infiltrate or other acute finding. PLEURAL SPACES: No pleural effusion or pneumothorax. MEDIASTINUM: Cardiac size and mediastinal contours within normal limits. BONES: No aggressive appearing osseous lesion seen. IMPRESSION: No acute cardiopulmonary pathology is evident. /[place]
--- NOTE | 2025-04-08 05:52 | EKG ---
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
== END 2025-04-07 18:23 | disposition home or self-care (01) ==
LOC: EDH 15:53
DX: R07.89 Other chest pain (principal); E78.00 Pure hypercholesterolemia, unspecified; Z88.5 Allergy status to narcotic agent; Z90.49 Acquired absence of other specified parts of digestive tract
CPT/HCPCS: 36415; 71045; 80048; 80076; 84484; 85025; 93005; 99284

== ENCOUNTER 2025-07-20 13:11 | Emergency (ER) | payer BC ==
[~2025-07-20] VITALS: Ht 154.9 cm; Wt 71.7 kg
--- NOTE | 2025-07-20 13:23 | ERN ---
ED Note History of Present Illness Stated Complaint: HEADACHE Chief Complaint: Head Injury Time Seen by MD: 13:16 Dictation: PATIENT IS A 44-YEAR-OLD FEMALE COMING IN TODAY WITH COMPLAINTS OF MILD GENERALIZED HEADACHE ONSET WAS EARLIER THIS MORNING. 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 NO LOC NO NAUSEA VOMITING NO BLOOD THINNERS NO TRAUMA ALERT CRITERIA. SHE STATES SHE TOOK A SINGLE TYLENOL WHICH IS HELPED WITH THE PAIN. NIH IS 0 ON EXAM AND SHE DROVE HERSELF TO THE EMERGENCY ROOM. [facility]ERMUD[facility] HEAD CT SCORE IS NEGATIVE IN TRIAGE. Allergies: Coded Allergies: meperidine (Verified Allergy, Unknown, 04/19/20) Home Meds Active Scripts Naproxen (Naproxen) 500 Mg Tablet, 1 TAB PO BID for pain for 7 Days, #14 TAB 0 Refills Prov:JESSICA DOMÍNGUEZ MD 11/16/24 Methylprednisolone (Medrol) 4 Mg Tab.ds.pk, 1 TAB PO AD for 6 Days, #21 TAB 0 Refills 6 on day 1 then reduce by one tablet daily until gone Prov:KEL SAUCEDOP 07/29/24 Benzonatate (Tessalon Perles) 100 Mg Cap, 100 MG PO TID for cough, #30 CAP 0 Refills Prov:KEL SAUCEDOP 07/29/24 Oseltamivir Phosphate (Tamiflu) 75 Mg Cap, 1 CAP PO BID for 5 Days, #10 CAP 0 Refills Prov:KEL ASUCEDOP 07/29/24 Hydroxyzine HCl (Hydroxyzine HCl) 25 Mg Tablet, 25 MG PO Q12H PRN for anxiety for 15 Days, #30 TAB Prov:JENNY PARRA AGACNP 05/14/24 Albuterol Sulfate (Ventolin Hfa/Proventil Hfa/Proair Hfa) 90 Mcg Puff, 2 PUFF IH Q4H PRN for SHORTNESS OF BREATH/WHEEZING for 30 Days, #1 INH 0 Refills Prov:KEL SAUCEDOP 05/08/24 Albuterol Sulfate (Ventolin Hfa/Proventil Hfa/Proair Hfa) 90 Mcg Puff, 2 PUFF IH Q4H for WHEEZING, #1 INHALER 0 Refills Prov:KYAW DALY MD 02/10/24 Reported Medications Multivitamin/Iron/Folic Acid (Centrum Women Tablet) 18 Mg Iron-400 Mcg Tablet, 1 EACH PO DAILY, TAB 05/13/24 Vitamin A (Vitamin A) 2,400 Mcg Capsule, 2400 MCG PO DAILY, CAP 05/13/24 Cholecalciferol (Vitamin D3) (Vitamin D3) 250 Mcg (92455 Unit) Capsule, 250 MCG PO DAILY, CAP 05/13/24 Atorvastatin Calcium (Atorvastatin Calcium) 20 Mg Tablet, 1 TAB PO HS 07/24/23 Zinc Sulfate (Zinc) 50 Mg Tablet, 50 MG PO DAILY, TAB 10/07/21 Ascorbic Acid (Vitamin C) 500 Mg Capsule, 500 MG PO DAILY, CAP 10/07/21 Past Medical History Past Medical History: No Pertinent History, High Cholesterol Additional Past Medical Hx: BRADYCARDIA Surgical History: Cholecystectomy Family History: Negative Social History: Negative, Lives with family History: Not Applicable LMP: Jun 15, 2025 : 7 Para: 7 Aborts: 0 RN Note Reviewed/Agreed w/PFSH: Yes Review of System Dictation CONSTITUTIONAL: NEGATIVE EXCEPT FOR HPI HEAD/FACE: NEGATIVE EXCEPT FOR HPI EENT: NEGATIVE EXCEPT FOR HPI RESPIRATORY: NEGATIVE EXCEPT FOR HPI GASTROINTESTINAL/ABDOMINAL: NEGATIVE EXCEPT FOR HPI GENITOURINARY: NEGATIVE EXCEPT FOR HPI MUSCULOSKELETAL: NEGATIVE EXCEPT FOR HPI INTEGUMENTARY: NEGATIVE EXCEPT FOR HPI NEUROLOGICAL/PSYCH: NEGATIVE EXCEPT FOR HPI GENERALIZED HEADACHE HEMATOLOGIC/LYMPHATIC: NEGATIVE EXCEPT FOR HPI ALL SYSTEMS NEGATIVE, EXCEPT NOTED ABOVE. 13 POINT REVIEW OF SYSTEMS ASSESSED AND ALL NEGATIVE EXCEPT FOR ABOVE. Initial Vital Sign VS Vital Signs Date Time Temp Pulse Resp B/P (MAP) Pulse Ox O2 Delivery O2 Flow Rate FiO2 07/20/25 13:13 98.2 58 20 122/64 98 Room Air 0 Physical Exam Dictation VITAL SIGNS REVIEWED GENERAL APPEARANCE: ALERT, ORIENTED X 3, MILD ACUTE DISTRESS, WELL DEVELOPED, NOURISHED. HEAD AND FACE: MILD TENDERNESS TO THE CROWN OF SCALP. NO HEMATOMA NO SIGNS OF SKULL FRACTURE VERMA OR RACCOON SIGN EYES: PERRL, PINK CONJUNCTIVAS, EYELID NO TRAUMA, ANTERIOR CHAMBER WITH ARCUS SENILIS. EARS: PINNAS INTACT AND NO SIGNS OF TRAUMA OR ERYTHEMA EAR CANALS CLEAR AND NO DISCHARGE TM NO ERYTHEMA NO HEMOTYMPANUM NOSE: NO DISCHARGE, NO BLEEDING. OROPHARYNX: MOUTH NORMAL, TONGUE PINK, PHARYNX CLEAR,NO ERYTHEMA, TONSILS NO EXUDATES, NO ABSCESSES NOTED, MUCOUS MEM BRANE MOIST NECK: SUPPLE, NON-TENDER, NO THYROMEGALY, NO MASSES, NO JVD, NO BRUITS BREAST:DEFERRED CHEST:NO TENDERNESS, NO CREPITUS, NO PARADOXICAL MOVEMENT, NO RETRACTIONS LUNGS:CLEAR, WELL-VENTILATED, SYMMETRIC, NO RALES, NO WHEEZING, NO RHONCHI, NO STRIDOR, GOOD BREATH SOUNDS BILATERALLY HEART: REGULAR RATE, REGULAR RHYTHM, NO MURMUR, NO GALLOPS VASCULAR: NO PERIPHERAL EDEMA, ABDOMEN: SOFT, POSITIVE BOWEL SOUNDS, NONDISTENDED, NO GUARDING, NONTENDER, NO REBOUND, NO MASSES NO HEPATOMEGALY, NO SPLENOMEGALY, NO MATAMOROS'S SIGN, NO HERNIAS. RECTAL: DEFERRED GENITAL: DEFERRED NEUROLOGICAL: NORMAL SPEECH, MOTOR FUNCTION INTACT, SENSORY FUNCTION INTACT PATIENT NEUROLOGICALLY INTACT AND DROVE HERSELF TO THE HOSPITAL. MUSCULOSKELETAL: NECK NONTENDER, FULL RANGE OF MOTION, BACK NONTENDER, FULL RANGE OF MOTION, EXTREMITIES: NONTENDER, FULL RANGE OF MOTION SKIN: COLOR PINK, DRY, NO TURGOR, NO RASH, NO LACERATIONS, NO ABRASIONS, NO CONTUSIONS. LYMPHATIC: DEFERRED Results (Laboratory/Radiology) Labs Reviewed?: Yes ED Course ED Course Orders Procedure Category Date Status Time Ibuprofen 600 Mg PHA 07/20/25 Complete Tablet (Motrin) 13:30 Current Medications Medications (Trade) Dose Ordered Sig/Isatu Route PRN Reason Start Time Stop Time Status Last Admin Dose Admin Ibuprofen (moTRIN) 600 mg ONCE ONCE PO 07/20/25 13:30 07/20/25 13:31 DC Vital Signs Date Time Temp Pulse Resp B/P (MAP) Pulse Ox O2 Delivery O2 Flow Rate FiO2 07/20/25 13:13 98.2 58 20 122/64 98 Room Air 0 0425/PATIENT DISCHARGED HOME NEUROLOGICALLY INTACT AND HEMODYNAMICALLY STABLE. NO INDICATION FOR CT FOLLOWING BERMUDIAN HEAD CT RULES PATIENT DISCHARGED HOME WITH MINOR HEAD TRAUMA AND POSTTRAUMATIC HEADACHE TOLD SEE HER PRIMARY CARE DOCTOR IN THE NEXT 1-2 DAYS Medical Decision Making MDM MEDICAL DECISION-MAKING WAS BASED ON HPI AND PHYSICAL EXAMINATION. NO VERMA OR RACCOON SIGN NO RHINORRHEA NO HEMOTYMPANUM THERE WAS NO LOC NO NAUSEA NO VOMITING NO BLOOD THINNERS BERMUDIAN HEAD CT SCORE WAS CALCULATED AND THERE WAS NO INDICATION FOR CT PATIENT DISCHARGED HOME WITH MINOR HEAD TRAUMA AND POSTTRAUMATIC HEADACHE TOLD SEE HER PRIMARY CARE DOCTOR IN THE NEXT 1-2 DAYS DX & DISP Disposition: Discharge Departure Impression: Primary Impression: Minor head trauma Additional Impression: Posttraumatic headache Condition: Stable Scripts Ibuprofen (Ibuprofen 800 mg Tab) 800 Mg Tab 800 MG PO Q8H PRN for fever or pain, #30 TAB 0 Refills Prov: KEL SAUCEDO 07/20/25 Additional Instructions: FOLLOW-UP WITH PRIMARY CARE PROVIDER IN 1 TO 2 DAYS. TAKE MEDICATIONS DIRECTED HERE IN THE EMERGENCY ROOM. OKAY TO CONTINUE HOME MEDICATIONS UNLESS OTHERWISE DISCUSSED DURING YOUR VISIT IN THE EMERGENCY ROOM TODAY. RETURN TO YOUR NEAREST EMERGENCY ROOM IF SYMPTOMS WORSEN OR IF THERE IS NO IMPROVEMENT. CALL 911 IF YOU NEED IMMEDIATE ASSISTANCE. TAKE TYLENOL OR MOTRIN OVER-THE- COUNTER NEEDED AND IF NO CONTRAINDICATIONS ARE PRESENT. INCREASE ORAL HYDRATION. A WOUND CULTURE OR URINE CULTURE WAS ORDERED HERE IN THE EMERGENCY ROOM DEPARTMENT PLEASE FOLLOW-UP WITH PRIMARY CARE PROVIDER AND ADVISE THEM TO GET REPEAT PORTS FROM OUR FACILITY. IF YOU HAD ANY DAKSHA WRAP/SPLINTS THAT WERE APPLIED HERE, PLEASE DO NOT REMOVE THEM UNTIL YOU SEE YOUR PRIMARY CARE OR SPECIALTY. SEE YOUR PRIMARY CARE DOCTOR IN THE NEXT 1-2 DAYS FOR MANAGEMENT. TAKE IBUPROFEN NEEDED FOR PAIN. RETURN TO THE EMERGENCY ROOM IF ANY CHANGES FROM HEAD INJURY WORK SHEET. Referrals: KASSIDY SOARES (PCP) Time of Disposition: 14:20 I have reviewed the case, and I agree with, Diagnosis and Plan KEL SAUCEDO Jul 20, 2025 13:23
[2025-07-20] MEDS ORDERED: IBUP-2077 PO (14:21)
--- NOTE | 2025-07-20 14:40 | NUR ---
ASSUMED CARE AT THIS TIME.
--- NOTE | 2025-07-20 16:04 | NUR ---
IN TO SEE JOSE E AND DISCUSSED POC AND RESULTS. PATIENT TO BE DISCHARGED HOME.
[2025-07-20 16:06] VITALS: BP 121/70; PULSE 44; RESP 18; TEMP 98.2; O2SAT 99
== END 2025-07-20 16:14 | disposition home or self-care (01) ==
LOC: EDH 13:11
DX: S09.90XA Unspecified injury of head, initial encounter (principal); G44.309 Post-traumatic headache, unspecified, not intractable; Z88.5 Allergy status to narcotic agent; Z90.49 Acquired absence of other specified parts of digestive tract; W22.8XXA Striking against or struck by other objects, initial encounter; Y93.89 Activity, other specified; Y92.89 Other specified places as the place of occurrence of the external cause; Y99.8 Other external cause status
CPT/HCPCS: 99283